=== PATIENT | female | born 1945 | race Caucasian/White ===

== ENCOUNTER → 2024-03-19 08:27 | Outpatient (CLI) | payer MEDICARE, SELFPAY ==
--- NOTE | 2024-03-19 | DI.US.S_ITS ---
PROCEDURE: US RENAL COMPLETE INDICATIONS: Renal osteodystrophy, CKD4 TECHNIQUE: Real-time scanning was performed of the kidneys and bladder, with image documentation. COMPARISON: None. FINDINGS: Kidneys: Kidneys are normal in size. Right kidney measures 10.6 cm long; left kidney measures 10.3 cm long. Right renal cortical thickness is 0.9 cm; left renal cortical thickness is 1.4 cm. The kidneys are heterogeneous with diffusely increased echogenicity. No hydronephrosis or nephrolithiasis. No suspicious solid mass lesions. Multiple bilateral simple renal cysts, the largest on the right measures up to 3.0 cm in the largest on the left measures up to 2.6 cm. Bladder: Bladder is nondistended and not well evaluated. Miscellaneous: No free pelvic fluid. IMPRESSION: No hydronephrosis. Echogenic appearance of the kidneys can be seen in the setting of chronic medical renal disease. Approved by: Desmond Ybarra M.D. on 03/19/2024 at 13:15
== END ==
LOC: US 08:29
PROVIDERS: Family Provider Family Medicine; PCP Student in an Organized Health Care Education/Training Program; Referring Provider Registered Nurse; Visit Provider Registered Nurse
DX: N25.0 Renal osteodystrophy (principal); N18.4 Chronic kidney disease, stage 4 (severe); N28.1 Cyst of kidney, acquired
CPT/HCPCS: 76770

== ENCOUNTER 2024-04-07 12:36 | Emergency (ER) | payer MEDICARE, SELFPAY ==
[2024-04-07] VITALS (12 sets, daily range): BP systolic 117–138; BP diastolic 59–96; PULSE 77–84; RESP 22; O2SAT 93–94; BMI 27.5
--- NOTE | 2024-04-07 13:07 | EKG_ITS ---
[address] [address] Test Date: 2024-04-07 Pat Name: Rosanna Dangelo Department: Room: Gender: Female [employer]: : 1945 Requested By: Order Number: [id number] Reading MD: Mark Andino MD Measurements Intervals [place] Rate: 77 P: 76 SD: 154 QRS: 154 QRSD: 74 T: 89 QT: 402 QTc: 454 Interpretive Statements Normal sinus rhythm Right axis deviation Low voltage QRS NO PRIOR TRACING Electronically Signed On 04-08-2024 7:30:47 PST by Mark Andino MD
--- NOTE | 2024-04-07 13:21 | DI.RAD.S_ITS ---
PROCEDURE: XR CHEST 1V INDICATIONS: chest pain TECHNIQUE: One view of the chest was acquired. COMPARISON: None. FINDINGS: Surgical changes and devices: None. Lungs and pleura: Hazy opacities are noted throughout bilateral lung arreola suggestive of pulmonary edema. Underlying subtle interstitial infiltrates cannot be entirely excluded. No pleural effusions or pneumothorax. Mediastinum: Aortic arch calcification is seen. Heart size is enlarged. Bones and chest wall: No suspicious bony lesions. Overlying soft tissues appear unremarkable. IMPRESSION: Cardiomegaly and congestive changes and suggestion of mild pulmonary edema. Cannot rule out underlying subtle interstitial infiltrates. No pleural effusion or pneumothorax. Dictated by: Pato De La Cruz M.D. on 04/07/2024 at 13:58 Approved by: Pato De La Cruz M.D. on 04/07/2024 at 13:59
--- NOTE | 2024-04-07 13:21 | DI.RAD.S_ITS ---
PROCEDURE: XR HIP W PEL IF DONE LT 2V INDICATIONS: fall TECHNIQUE: AP pelvis with lateral view(s) of the left hip(s). COMPARISON: None. FINDINGS: Bones: No fractures or dislocations. Pelvic ring appears intact. Bilateral hip joint osteoarthritic changes are seen with joint space narrowing and subchondral sclerosis. No evidence of avascular necrosis of femoral head. No suspicious bony lesions. Soft tissues: The visualized bowel gas pattern is normal. No suspicious soft tissue calcifications. IMPRESSION: No acute pelvic or hip fracture. Bilateral hip joint osteoarthritis. No evidence of avascular necrosis. Dictated by: Pato De La Cruz M.D. on 04/07/2024 at 13:59 Approved by: Pato De La Cruz M.D. on 04/07/2024 at 14:00
[2024-04-07 14:05] LABS: Add Manual Diff / Slide Review NO; Basophils Absolute Auto 100 /uL (0-100); Eosinophils Absolute Auto 200 /uL (0-450); Eosinophils Percent Auto 2.1 % (2-4); Hematocrit 32.9 % (36-46); Hemoglobin 10.9 g/dL (12.0-16.0); Lymphocytes Absolute Auto 1500 /uL (1100-4500); Mean Corpuscular Hemoglobin 30.7 PG (26-34); Mean Corpuscular Volume 93.1 fL (80-100); Monocytes Absolute Auto 800 /uL (0-900); Monocytes Percent Auto 7.4 % (3-14); Neutrophils Absolute Auto 8700 /uL (1500-7000); Neutrophils Percent Auto 76.5 % (50-75); Platelet Count 287 X10^3/uL (150-400); Red Blood Cell Count 3.54 X10^6/uL (4.0-5.2); Red Cell Distribution Width 13.2 % (11.6-14.8); White Blood Cell Count 11.4 X10^3/uL (4.5-11.0)
[2024-04-07 14:18] LABS: PTT Partial Thromboplastin Tim 30 SECONDS (25.1-36.5)
[2024-04-07 14:19] LABS: Alanine Aminotransferase 13 IU/L (<35); Albumin 3.7 g/dL (3.5-5.0); Albumin Globulin Ratio 1.3 (1.0-2.8); Alkaline Phosphatase 85 U/L (38-126); Aspartate Aminotransferase 25 IU/L (14-36); BUN Creatinine Ratio 14.5 (6-22); Bilirubin Total 0.5 mg/dL (0.2-1.3); Blood Urea Nitrogen 54 mg/dL (7-17); Carbon Dioxide 23 mmol/L (22-32); Chloride 110 mmol/L (98-107); Creatine Kinase 195 U/L (30-135); Estimated Glomerular Filt Rate 12 mL/min (>60); Globulin 2.9 g/dL (1.7-4.1); Glucose 121 mg/dL (80-110); HEMOLYSIS 17 (0-50); Lipase 60 U/L (23-300); Potassium 4.6 mmol/L (3.4-5.1); Sodium 142 mmol/L (137-145); Total Protein 6.6 g/dL (6.3-8.2)
[2024-04-07 14:31] LABS: NT-proBNP (BNP-Adult 18+) 1670 pg/mL (<450); Troponin I < 0.012 ng/mL (0.01-0.034)
--- NOTE | 2024-04-07 15:27 | ED.FALL ---
HPI - Fall General Chief Complaint: Fall Stated Complaint: GLF Time Seen by Provider: 04/07/24 13:20 Source: patient and EMS Mode of arrival: EMS History of Present Illness HPI Narrative: Patient 79-year-old female history of chronic kidney disease stage 4 depression adult failure to thrive bipolar hyperlipidemia hyperkalemia nonrheumatic mitral valve insufficiency who resides at [facility] presents today after ground level fall she is having some left-sided pain. Not specific to her hip. Reports that she tripped and fell over her walker wheals. No head injury or loss of consciousness. She has not on anticoagulation or antiplatelet medication. She is overall feeling well Related Data Home Medications Medication Instructions Recorded Confirmed albuterol sulfate 2.5 mg/0.5 mL 1 dose INH QID PRN ##0 01/19/16 solution for nebulization beclomethasone dipropionate 40 2 puff INH BID ##0 01/19/16 mcg/actuation aerosol inhaler (Qvar) fluoxetine 20 mg capsule 20 mg OR BID ##0 01/19/16 ipratropium bromide 0.02 % 1 dose INH QID PRN ##0 01/19/16 solution for inhalation lamotrigine 200 mg tablet 200 mg PO QDAY ##0 01/19/16 (Lamictal) lisinopril 5 mg tablet 5 mg PO HS ##0 01/19/16 lorazepam 0.5 mg tablet (Ativan) 0.5 mg PO BID ##0 01/19/16 pravastatin 20 mg tablet 20 mg PO HS ##0 01/19/16 (Pravachol) Allergies Allergy/AdvReac Type Severity Reaction Status Date / Time divalproex sodium Allergy Verified 04/07/24 14:01 [From [facility]] Patient History Social History Smoking Status: Never smoker Smoking Status: Never smoker alcohol intake frequency: holidays/special occasions only Substance Use Type: does not use Exam Initial Vital Signs Initial Vital Signs: Vital Signs Pulse Rate 82 04/07/24 12:44 Blood Pressure 117/77 04/07/24 12:44 Pulse Oximetry 94 04/07/24 12:44 GENERAL: [Well-appearing, well-nourished] and in [no acute] distress. HEENT: Head atraumatic,EOMI, pupils reactive, face symmetric, [moist] mucous membranes [EARS:] [Tympanic membranes visualized, no erythema or bulging, no hemotympanum] [PHARYNX:] [No erythema, no tonsillar exudate, no cervical lymphadenopathy] CARDIOVASCULAR: Regular rate and rhythm without murmurs, rubs or gallops. RESPIRATORY: Breath sounds equal bilaterally, no wheezes rales or rhonchi. ABDOMEN: Soft, nontender. Normoactive bowel sounds all 4 quadrants. No guarding or rebound. [RECTAL:] [Hemoccult-positive, no hemorrhoids, nontender] : No CVA tenderness EXTREMITIES: Normal range of motion, no clubbing or edema. Neurovascularly intact NEUROLOGICAL: Alert and oriented x4.Normal gait and speech. Cranial nerves II through XII grossly intact. [Good [id number], good [id number], strength equal bilaterally, no dysarthria or aphasia, sensation in tact to soft touch bilaterally, no visual changes, no facial droop] SKIN: Warm, dry, no laceration, no petechiae, no rashes or lesions. Course Orders Ordered: ED Orders 04/07/24 13:21 XR chest 1V Stat XR hip w pel if done LT 2V Stat EKG-12 Lead Stat 04/07/24 13:50 Complete Blood Count AUTO DIFF Stat Comprehensive Metabolic Panel Stat Lipase Stat Magnesium Stat NT-proBNP (BNP-Adult 18+) Stat PTT Partial Thromboplastin [place] Stat Prothrombin Time INR Stat Troponin & CK Cardiac Panel Stat Discontinued Medications Acetaminophen (Acetaminophen 325 Mg Tablet) 975 mg PO NOW ONE Stop: 04/07/24 15:58 Last Admin: 04/07/24 16:02 Dose: 975 mg Documented By: JOHN Aspirin (Aspirin 81 Mg Chew Tab) 324 mg PO NOW ONE Stop: 04/07/24 13:22 Last Admin: 04/07/24 13:59 Dose: Not Given Documented By: JOHN Vital Signs Vital signs: Vital Signs - 8 hr 04/07/24 12:44 04/07/24 12:44 04/07/24 12:57 Pulse Rate 82 78 Respiratory Rate 22 Blood Pressure 117/77 124/59 L Pulse Oximetry 94 93 Oxygen Delivery Method Room Air 04/07/24 13:00 04/07/24 13:00 04/07/24 13:30 Pulse Rate 77 78 Respiratory Rate Blood Pressure 124/59 L Pulse Oximetry 93 93 Oxygen Delivery Method Room Air 04/07/24 13:56 04/07/24 13:56 04/07/24 14:00 Pulse Rate 77 Respiratory Rate Blood Pressure 136/63 128/65 Pulse Oximetry 93 Oxygen Delivery Method 04/07/24 14:00 04/07/24 14:30 04/07/24 14:30 Pulse Rate 78 79 Respiratory Rate Blood Pressure 131/60 Pulse Oximetry 93 93 Oxygen Delivery Method 04/07/24 15:00 04/07/24 15:00 04/07/24 15:30 Pulse Rate 84 78 Respiratory Rate Blood Pressure 128/81 Pulse Oximetry 94 94 Oxygen Delivery Method 04/07/24 15:31 04/07/24 15:31 04/07/24 15:46 Pulse Rate 81 83 Respiratory Rate Blood Pressure 135/96 H Pulse Oximetry 94 93 Oxygen Delivery Method 04/07/24 15:46 04/07/24 16:00 Pulse Rate 81 Respiratory Rate Blood Pressure 138/65 Pulse Oximetry 94 Oxygen Delivery Method Room Air MDM - Fall Lab Data 04/07/24 13:50 04/07/24 13:50 Labs: Lab Results 04/07/24 Range/Units 13:50 WBC 11.4 H (4.5-11.0) X10^3/uL RBC 3.54 L (4.0-5.2) X10^6/uL Hgb 10.9 L (12.0-16.0) g/dL Hct 32.9 L (36-46) % MCV 93.1 (80-100) fL MCH 30.7 (26-34) PG MCHC 33.0 (30-36) % RDW 13.2 (11.6-14.8) % Plt Count 287 (150-400) X10^3/uL Neut % (Auto) 76.5 H (50-75) % Lymph % (Auto) 13.0 L (25-40) % Dickens % (Auto) 7.4 (3-14) % Eos % (Auto) 2.1 (2-4) % Baso % (Auto) 1.0 (0-2) % Neut # (Auto) 8700 H (4276-7120) /uL Lymph # (Auto) 1500 (5178-8025) /uL Dickens # (Auto) 800 (0-900) /uL Eos # (Auto) 200 (0-450) /uL Baso # (Auto) 100 (0-100) /uL PT 11.0 (9.4-12.5) SECONDS INR 1.0 (0.9-1.3) APTT 30 (25.1-36.5) SECONDS Sodium 142 (137-145) mmol/L Potassium 4.6 (3.4-5.1) mmol/L Chloride 110 H (98-107) mmol/L Carbon Dioxide 23 (22-32) mmol/L BUN 54 H (7-17) mg/dL Creatinine 3.73 H (0.52-1.04) mg/dL Estimated GFR 12 L (>60) mL/min BUN/Creatinine Ratio 14.5 (6-22) Glucose 121 H (80-110) mg/dL Calcium 8.0 L (8.4-10.2) mg/dL Magnesium 2.0 (1.6-2.3) mg/dL Total Bilirubin 0.5 (0.2-1.3) mg/dL AST 25 (14-36) IU/L ALT 13 (<35) IU/L Alkaline Phosphatase 85 (38-126) U/L Total Creatine Kinase 195 H (30-135) U/L Troponin I < 0.012 (0.01-0.034) ng/mL NT-Pro-B Natriuret Pep 1670 H (<450) pg/mL Total Protein 6.6 (6.3-8.2) g/dL Albumin 3.7 (3.5-5.0) g/dL Globulin 2.9 (1.7-4.1) g/dL Albumin/Globulin Ratio 1.3 (1.0-2.8) Lipase 60 (23-300) U/L Imaging Data Extremity x-ray #1: Radiologist's Impression: PROCEDURE: XR HIP W PEL IF DONE LT 2V INDICATIONS: fall TECHNIQUE: AP pelvis with lateral view(s) of the left hip(s). COMPARISON: None. FINDINGS: Bones: No fractures or dislocations. Pelvic ring appears intact. Bilateral hip joint osteoarthritic changes are seen with joint space narrowing and subchondral sclerosis. No evidence of avascular necrosis of femoral head. No suspicious bony lesions. Soft tissues: The visualized bowel gas pattern is normal. No suspicious soft tissue calcifications. IMPRESSION: No acute pelvic or hip fracture. Bilateral hip joint osteoarthritis. No evidence of avascular necrosis. Dictated by: Pato De La Cruz M.D. on 04/07/2024 at 13:59 Approved by: Pato De La Cruz M.D. on 04/07/2024 at 14:00 ECG Data Attestation: I personally reviewed and interpreted this ECG as follows: Prior ECG tracings: not available for review Interpretation: Low voltage normal sinus rhythm rate 77 SD interval 154 QRS [address] changes MDM Narrative Medical decision making narrative: Patient is a 79-year-old female who has multiple medical problems including chronic kidney disease bipolar hyperlipidemia hypertension presenting today after mechanical ground level fall. Sounds like she tripped over her walker. She has some left-sided pain. No specific hip pain or shortening. She is actually able to move both legs. Hip x-ray is negative Blood work is overall reassuring she does have a creatinine of 3.73 with a GFR of 12. Unclear what her normal is but she does have stage IV kidney disease. Potassium is 4.6. She ambulated with walk without any difficulty I attempted to call patient's jaw on however the son Junito answered the phone. Junito lives over at [place] updated him on patient's ED course he was unaware that she was here. I never saw the has been in the emergency department. Other staff did, he reported that he was going home. Later [facility] told us that has a wandering problem and has dementia himself. The did not go back over to assisted living facility. Police were called by the ED. We called and told son as well. Security cameras were reviewed appeared that got into a taxi cab to go back [facility]. Assisted living facility police and son are all made aware of the . Discharge Plan Departure Patient Disposition: Home Clinical Impression: Fall Activity Restrictions/Additional Instructions: *You have been diagnosed with fall *What to do: At this time no broken bone is found blood work is reassuring Try ice or heat *Continue to take medications as directed Tylenol as needed for pain *Follow up with your primary care provider in 2-3 days or call [phone] *Return to ER if you should have recurrent falls [or] any new, worsening or concerning symptoms Prescriptions: No Action lorazepam [Ativan] 0.5 MG tablet 0.5 mg PO BID Qty: 0 fluoxetine 20 MG capsule 20 mg OR BID Qty: 0 lisinopril 5 MG tablet 5 mg PO HS Qty: 0 lamotrigine [Lamictal] 200 MG tablet 200 mg PO QDAY Qty: 0 pravastatin [Pravachol] 20 MG tablet 20 mg PO HS Qty: 0 beclomethasone dipropionate [Qvar] 40 MCG/PUFF aerosol 2 puff INH BID Qty: 0 albuterol sulfate 2.5 MG/0.5 ML solution for nebulization 1 dose INH QID PRNQty: 0 ipratropium bromide 0.2 MG/1 ML solution 1 dose INH QID PRNQty: 0 Referrals: Blaise Kelsey MD [Primary Care Provider] - Stand Alone Forms: Patient Portal/API/Survey
[2024-04-07] MEDS: ACETAMINOPHEN 325 MG TABLET 975 MG PO (16:02)
== END 2024-04-07 16:18 | disposition home or self-care (01) ==
PROVIDERS: Emergency Provider Emergency Medicine; Family Provider Family Medicine; PCP Student in an Organized Health Care Education/Training Program
DX: M25.552 Pain in left hip (principal); W01.0XXA Fall on same level from slipping, tripping and stumbling without subsequent striking against object, initial encounter; R79.89 Other specified abnormal findings of blood chemistry; R07.9 Chest pain, unspecified; N18.4 Chronic kidney disease, stage 4 (severe)
CPT/HCPCS: 71045; 73502; 80053; 82550; 83690; 83735; 83880; 84484; 85025; 85610; 85730; 93005; 99283; 99284

== ENCOUNTER 2024-04-16 11:08 | Emergency (ER) | payer MEDICARE, SELFPAY ==
[2024-04-16 11:20] VITALS: BP 127/60; PULSE 77; RESP 18; TEMP 37.3; O2SAT 93; BMI 28.3
--- NOTE | 2024-04-16 11:37 | DI.CT.S_ITS ---
PROCEDURE: CT HEAD/BRAIN WO CON INDICATIONS: fall, pain. TECHNIQUE: Noncontrast 4.5 mm thick angled axial sections acquired from the foramen magnum to the vertex, with coronal and sagittal reformats. For radiation dose reduction, the following was used: automated exposure control, adjustment of mA and/or kV according to patient size. COMPARISON: None. FINDINGS: Image quality: Diagnostic. CSF spaces: Basal cisterns are patent. No extra-axial fluid collections. The ventricles are symmetric in size and shape. Brain: No intracranial bleeds or masses. There is cerebral volume loss for age, with resultant ventricular and sulcal prominence. There are periventricular and deep white matter chronic small vessel ischemic changes. There is intracranial internal carotid artery atherosclerosis. Skull and face: Calvarium and visualized facial bones appear intact, without suspicious lesions. Sinuses: Visualized sinuses and mastoids are clear. IMPRESSION: No acute intracranial pathology. Dictated by: Usha Buitrago MD, PhD on 04/16/2024 at 12:54 Approved by: Usha Buitrago MD, PhD on 04/16/2024 at 12:56
--- NOTE | 2024-04-16 11:37 | DI.CT.S_ITS ---
PROCEDURE: CT CERVICAL SPINE WO CON INDICATIONS: fall TECHNIQUE: Noncontrast 3 mm thick sections acquired from the skull base to the T4 level. Sagittal and coronal reformats were then constructed. For radiation dose reduction, the following was used: automated exposure control, adjustment of mA and/or kV according to patient size. COMPARISON: None. FINDINGS: Image quality: Excellent. Bones: No fractures or dislocations. Visualized superior ribs are intact. Soft tissues: Prevertebral soft tissues are normal in thickness. No paravertebral hematomas. No apical pneumothoraces. IMPRESSION: No fracture. No acute osseous lesion. If symptoms and/or clinical suspicion for pathology persists, evaluation with MRI should be considered for further assessment. Dictated by: Usha Buitrago MD, PhD on 04/16/2024 at 12:56 Approved by: Usha Buitrago MD, PhD on 04/16/2024 at 13:00
--- NOTE | 2024-04-16 11:41 | DI.RAD.S_ITS ---
PROCEDURE: XR CHEST 1V INDICATIONS: fall TECHNIQUE: One view of the chest was acquired. COMPARISON: [facility], CR, XR CHEST 1V, 04/07/2024, 13:32. FINDINGS: Surgical changes and devices: None. Lungs and pleura: Lungs are clear. No pleural effusions or pneumothorax. Mediastinum: Mediastinal contours appear normal. Heart is mildly enlarged. Large retrocardiac hiatal hernia. Bones and chest wall: No suspicious bony lesions. Overlying soft tissues appear unremarkable. IMPRESSION: No acute cardiopulmonary abnormality is seen. Dictated by: Usha Buitrago MD, PhD on 04/16/2024 at 11:59 Approved by: Usha Buitrago MD, PhD on 04/16/2024 at 12:04
--- NOTE | 2024-04-16 11:41 | ED_ITS ---
HPI - Fall <Linda Liang PA-C - Last Filed: 04/16/24 19:49> General Chief Complaint: Fall Stated Complaint: fall Time Seen by Provider: 04/16/24 11:28 History of Present Illness HPI Narrative: 79-year-old female with past medical history stage IV chronic kidney disease, major depressive disorder, adult failure to thrive, repeated falls, bipolar disorder, COPD, hyperlipidemia, hypertension, nonrheumatic mitral valve insufficiency, nonrheumatic tricuspid valve insufficiency, GERD, osteoarthritis, renal osteodystrophy, osteoporosis, dysphagia, cognitive communication deficit brought in by EMT following a fall this morning. Patient was found fallen from her bed at the assisted living that she is at. The fall was unwitnessed. Patient is unable to explain what happened due to the dementia and cognitive issues. Patient states that she is hurting all over. Denies chest pain, shortness of breath. Unable to obtain further history from patient. Related Data Home Medications Medication Instructions Recorded Confirmed albuterol sulfate 2.5 mg/0.5 mL 1 dose INH QID PRN ##0 01/19/16 solution for nebulization beclomethasone dipropionate 40 2 puff INH BID ##0 01/19/16 mcg/actuation aerosol inhaler (Qvar) fluoxetine 20 mg capsule 20 mg OR BID ##0 01/19/16 ipratropium bromide 0.02 % 1 dose INH QID PRN ##0 01/19/16 solution for inhalation lamotrigine 200 mg tablet 200 mg PO QDAY ##0 01/19/16 (Lamictal) lisinopril 5 mg tablet 5 mg PO HS ##0 01/19/16 lorazepam 0.5 mg tablet (Ativan) 0.5 mg PO BID ##0 01/19/16 pravastatin 20 mg tablet 20 mg PO HS ##0 01/19/16 (Pravachol) Previous Rx's Medication Instructions Recorded cefpodoxime 200 mg tablet 200 mg PO Q12H 10 days #20 tabs 04/16/24 cephalexin 500 mg capsule 500 mg PO TID 10 days #30 caps 04/16/24 Allergies Allergy/AdvReac Type Severity Reaction Status Date / Time divalproex sodium Allergy Verified 04/07/24 14:01 [facility] Review of Systems <Linda Liang PA-C - Last Filed: 04/16/24 19:49> Review of Systems Narrative: See HPI ROS Unobtainable: Unobtainable due to mental condition Patient History <Linda Liang PA-C - Last Filed: 04/16/24 19:49> Social History Smoking Status: Never smoker Smoking Status: Never smoker alcohol intake frequency: holidays/special occasions only Substance Use Type: does not use Exam <Linda Liang PA-C - Last Filed: 04/16/24 19:49> Narrative Exam Narrative: Const General:?cooperative, healthy appearing and comfortable [facility] Head:?normal to inspection Ears:?hearing grossly normal bilaterally Nose:?external nose normal Face and sinus:?normal facial exam and sinuses nontender Mouth:?oral mucosae normal Throat:?posterior oropharynx normal Eyes General:?appearance normal, both eyes and all related structures Neck Neck:?normal visual inspection and no lymphadenopathy noted Resp Effort & Inspection:?normal respiratory effort Auscultation:?clear to auscultation bilaterally Cardio Rate:?regular rate Rhythm:?regular rhythm GI Abdomen is soft, nondistended. Patient generalized tenderness to palpation. Neuro General:?patient alert, patient awake and alert; patient not able to provide accurate history Initial Vital Signs Initial Vital Signs: Vital Signs Temperature 99.1 F 04/16/24 11:20 Pulse Rate 77 04/16/24 11:20 Respiratory Rate 18 04/16/24 11:20 Blood Pressure 127/60 04/16/24 11:20 Pulse Oximetry 93 04/16/24 11:20 Oxygen Delivery Method Room Air 04/16/24 11:20 <Ramona Miller MD - Last Filed: 04/25/24 07:17> Initial Vital Signs Initial Vital Signs: Vital Signs Temperature 99.1 F 04/16/24 11:20 Pulse Rate 77 04/16/24 11:20 Respiratory Rate 18 04/16/24 11:20 Blood Pressure 127/60 04/16/24 11:20 Pulse Oximetry 93 04/16/24 11:20 Oxygen Delivery Method Room Air 04/16/24 11:20 Course <Linda Liang PA-C - Last Filed: 04/16/24 19:49> Orders Ordered: Discontinued Medications Cefazolin Sodium (Cephalexin 250 Mg Cap Prepack) 1 bottle MISC DIRECTED ONE Stop: 04/16/24 19:46 Last Admin: 04/16/24 20:00 Dose: 1 bottle Documented By: YASIR Ceftriaxone Sodium 1,000 mg/ (Sodium Chloride) 100 mls @ 200 mls/hr IV NOW ONE Stop: 04/16/24 17:51 Last Infusion: 04/16/24 18:49 Dose: Infused Documented By: Admin: 04/16/24 18:05 Dose: 200 mls/hr Documented By: MARRY Sodium Chloride (Normal Saline 0.9%) 1,000 mls @ 1,000 mls/hr IV BOLUS ONE Stop: 04/16/24 19:31 Last Infusion: 04/16/24 19:48 Dose: Infused Documented By: Admin: 04/16/24 18:40 Dose: 1,000 mls/hr Documented By: MARRY Vital Signs Vital signs: Vital Signs - 8 hr 04/16/24 16:30 04/16/24 17:00 04/16/24 17:30 Temperature 98.6 F Pulse Rate 77 74 80 Respiratory Rate 17 18 18 Blood Pressure 131/69 139/63 139/65 Pulse Oximetry 93 95 92 Oxygen Delivery Method Room Air Room Air Room Air 04/16/24 18:00 04/16/24 19:46 Temperature Pulse Rate 75 79 Respiratory Rate 17 18 Blood Pressure 139/65 140/67 Pulse Oximetry 92 95 Oxygen Delivery Method Room Air Room Air <Ramona Miller MD - Last Filed: 04/25/24 07:17> Orders Ordered: Discontinued Medications Cefazolin Sodium (Cephalexin 250 Mg Cap Prepack) 1 bottle MISC DIRECTED ONE Stop: 04/16/24 19:46 Last Admin: 04/16/24 20:00 Dose: 1 bottle Documented By: YASIR Ceftriaxone Sodium 1,000 mg/ (Sodium Chloride) 100 mls @ 200 mls/hr IV NOW ONE Stop: 04/16/24 17:51 Last Infusion: 04/16/24 18:49 Dose: Infused Documented By: Admin: 04/16/24 18:05 Dose: 200 mls/hr Documented By: MARRY Sodium Chloride (Normal Saline 0.9%) 1,000 mls @ 1,000 mls/hr IV BOLUS ONE Stop: 04/16/24 19:31 Last Infusion: 04/16/24 19:48 Dose: Infused Documented By: Admin: 04/16/24 18:40 Dose: 1,000 mls/hr Documented By: MARRY Vital Signs Vital signs: Vital Signs - 8 hr 04/16/24 16:30 04/16/24 17:00 04/16/24 17:30 Temperature 98.6 F Pulse Rate 77 74 80 Respiratory Rate 17 18 18 Blood Pressure 131/69 139/63 139/65 Pulse Oximetry 93 95 92 Oxygen Delivery Method Room Air Room Air Room Air 04/16/24 18:00 04/16/24 19:46 Temperature Pulse Rate 75 79 Respiratory Rate 17 18 Blood Pressure 139/65 140/67 Pulse Oximetry 92 95 Oxygen Delivery Method Room Air Room Air MDM - Fall <Linda Liang PA-C - Last Filed: 04/16/24 19:49> Lab Data 04/16/24 12:27 04/16/24 12:27 Labs: Lab Results 04/16/24 04/16/24 04/16/24 Range/Units 12:27 14:09 16:41 WBC 10.8 (4.5-11.0) X10^3/uL RBC 3.51 L (4.0-5.2) X10^6/uL Hgb 10.6 L (12.0-16.0) g/dL Hct 32.6 L (36-46) % MCV 92.8 (80-100) fL MCH 30.2 (26-34) PG MCHC 32.6 (30-36) % RDW 13.2 (11.6-14.8) % Plt Count 365 (150-400) X10^3/uL Neut % (Auto) 76.1 H (50-75) % Lymph % (Auto) 14.1 L (25-40) % [place] % (Auto) 7.8 (3-14) % Eos % (Auto) 0.9 L (2-4) % Baso % (Auto) 1.1 (0-2) % Neut # (Auto) 8200 H (3314-9113) /uL Lymph # (Auto) 1500 (3533-7616) /uL [place] # (Auto) 800 (0-900) /uL Eos # (Auto) 100 (0-450) /uL Baso # (Auto) 100 (0-100) /uL Sodium 143 (137-145) mmol/L Potassium 4.3 (3.4-5.1) mmol/L Chloride 113 H (98-107) mmol/L Carbon Dioxide 21 L (22-32) mmol/L BUN 51 H (7-17) mg/dL Creatinine 4.03 H (0.52-1.04) mg/dL Estimated GFR 11 L (>60) mL/min BUN/Creatinine Ratio 12.7 (6-22) Glucose 95 (80-110) mg/dL Lactate 0.6 L (0.7-2.1) mmol/L Calcium 7.8 L (8.4-10.2) mg/dL Total Bilirubin 0.5 (0.2-1.3) mg/dL AST 21 (14-36) IU/L ALT 10 (<35) IU/L Alkaline Phosphatase 104 (38-126) U/L Total Creatine Kinase 138 H (30-135) U/L Troponin I < 0.012 (0.01-0.034) ng/mL NT-Pro-B Natriuret Pep 3500 H (<450) pg/mL Total Protein 7.1 (6.3-8.2) g/dL Albumin 3.7 (3.5-5.0) g/dL Globulin 3.4 (1.7-4.1) g/dL Albumin/Globulin Ratio 1.1 (1.0-2.8) Lipase 38 (23-300) U/L Urine Color Yellow Urine Appearance Clear Urine pH 6.5 (4.5-8.0) Ur Specific [place] 1.015 (1.000-1.035) Urine Protein 2+ H (Negative) Urine Glucose (UA) Negative (Negative) g/dL Urine Ketones Negative (NEGATIVE) Urine Occult Blood 3+ H (Negative) Urine Nitrate Negative (Negative) Urine Bilirubin Negative (NEGATIVE) Urine Urobilinogen 0.2 (0.2) E.U./dL Ur Leukocyte Esterase 3+ H (NEGATIVE) Urine RBC 1-5/hpf (0-5/HPF) Urine WBC 30-100/hpf H (0-5/HPF) Ur Squamous Epith Cells 0-1 /hpf (0-5/HPF) Urine Bacteria Many (>30) H (None) Ur Culture Indicated? Specimen cultured Vol Urine Centrifuged 10ml (spun) SARS-CoV-2 (PCR) Negative (Negative) Influenza A (RT-PCR) Flu a negative (NEGATIVE) Influenza B (RT-PCR) Flu b negative (NEGATIVE) RSV (PCR) Negative (Negative) MDM Narrative Medical decision making narrative: 79-year-old female with past medical history stage IV chronic kidney disease, major depressive disorder, adult failure to thrive, repeated falls, bipolar disorder, COPD, hyperlipidemia, hypertension, nonrheumatic mitral valve insufficiency, nonrheumatic tricuspid valve insufficiency, GERD, osteoarthritis, renal osteodystrophy, osteoporosis, dysphagia, cognitive communication deficit brought in by EMT following a fall this morning. Concern for ACS versus worsening CKD versus UTI versus other. Obtained EKG, chest x-ray, labs, troponin, BNP, CT abdomen pelvis, head CT, CT scan C-spine. EKG is normal sinus rhythm with possible left atrial enlargement, right axis deviation, low-voltage QRS. No acute ST-T changes. Chest x-ray without acute cardiopulmonary abnormalities. Head CT with no acute intracranial pathology. CT C-spine with no fracture or acute osseous lesion. Labs significant for elevated BNP of 3500, elevated creatinine 4.03, declining GFR 11, calcium low at 7.8. Troponin is within normal limits. Dr. Rodriguez cardiology was consulted regarding the elevated BNP. Her recommendation is that this is more likely renal in origin versus cardiac. Recommends starting Lasix only if patient is clinically overloaded. [facility] was consulted to obtain history. They received the patient from a SNF with a diagnosis of failure to thrive. The paperwork from the SNF notes that no further interventions regarding the CKD due to patient being unable to consent for any interventions such as dialysis. , hospitalist was consulted. He agrees that since patient is unable to consent for dialysis or further interventions for the CKD, we can discharge back to [facility]. Patient was unable to urinate during the ED stay, acute urinary retention of 500 mL was noted on bladder scan. Murphy catheter was placed. UA shows a UTI. Will treat with a dose of Rocephin IV, discharge on p.o. antibiotics. Murphy catheter was removed, trial of urination was successful. Patient was able to urinate a small amount. Prepack of cephalexin given patient for the next few doses. Patient was given a dose of Rocephin in the ED today. Remaining antibiotics prescribed to [place] pharmacy. Medical records reviewed: Yes <Ramona Miller MD - Last Filed: 04/25/24 07:17> Lab Data Labs: Lab Results 04/16/24 04/16/24 04/16/24 Range/Units 12:27 14:09 16:41 WBC 10.8 (4.5-11.0) X10^3/uL RBC 3.51 L (4.0-5.2) X10^6/uL Hgb 10.6 L (12.0-16.0) g/dL Hct 32.6 L (36-46) % MCV 92.8 (80-100) fL MCH 30.2 (26-34) PG MCHC 32.6 (30-36) % RDW 13.2 (11.6-14.8) % Plt Count 365 (150-400) X10^3/uL Neut % (Auto) 76.1 H (50-75) % Lymph % (Auto) 14.1 L (25-40) % [place] % (Auto) 7.8 (3-14) % Eos % (Auto) 0.9 L (2-4) % Baso % (Auto) 1.1 (0-2) % Neut # (Auto) 8200 H (3718-0841) /uL Lymph # (Auto) 1500 (5724-9528) /uL [place] # (Auto) 800 (0-900) /uL Eos # (Auto) 100 (0-450) /uL Baso # (Auto) 100 (0-100) /uL Sodium 143 (137-145) mmol/L Potassium 4.3 (3.4-5.1) mmol/L Chloride 113 H (98-107) mmol/L Carbon Dioxide 21 L (22-32) mmol/L BUN 51 H (7-17) mg/dL Creatinine 4.03 H (0.52-1.04) mg/dL Estimated GFR 11 L (>60) mL/min BUN/Creatinine Ratio 12.7 (6-22) Glucose 95 (80-110) mg/dL Lactate 0.6 L (0.7-2.1) mmol/L Calcium 7.8 L (8.4-10.2) mg/dL Total Bilirubin 0.5 (0.2-1.3) mg/dL AST 21 (14-36) IU/L ALT 10 (<35) IU/L Alkaline Phosphatase 104 (38-126) U/L Total Creatine Kinase 138 H (30-135) U/L Troponin I < 0.012 (0.01-0.034) ng/mL NT-Pro-B Natriuret Pep 3500 H (<450) pg/mL Total Protein 7.1 (6.3-8.2) g/dL Albumin 3.7 (3.5-5.0) g/dL Globulin 3.4 (1.7-4.1) g/dL Albumin/Globulin Ratio 1.1 (1.0-2.8) Lipase 38 (23-300) U/L Urine Color Yellow Urine Appearance Clear Urine pH 6.5 (4.5-8.0) Ur Specific [place] 1.015 (1.000-1.035) Urine Protein 2+ H (Negative) Urine Glucose (UA) Negative (Negative) g/dL Urine Ketones Negative (NEGATIVE) Urine Occult Blood 3+ H (Negative) Urine Nitrate Negative (Negative) Urine Bilirubin Negative (NEGATIVE) Urine Urobilinogen 0.2 (0.2) E.U./dL Ur Leukocyte Esterase 3+ H (NEGATIVE) Urine RBC 1-5/hpf (0-5/HPF) Urine WBC 30-100/hpf H (0-5/HPF) Ur Squamous Epith Cells 0-1 /hpf (0-5/HPF) Urine Bacteria Many (>30) H (None) Ur Culture Indicated? Specimen cultured Vol Urine Centrifuged 10ml (spun) SARS-CoV-2 (PCR) Negative (Negative) Influenza A (RT-PCR) Flu a negative (NEGATIVE) Influenza B (RT-PCR) Flu b negative (NEGATIVE) RSV (PCR) Negative (Negative) Discharge Plan Departure Patient Disposition: Home Clinical Impression: Fall UTI (urinary tract infection) Qualifiers: Urinary tract infection type: acute cystitis Hematuria presence: without hematuria Qualified Code(s): N30.00 - Acute cystitis without hematuria Instructions: DI for Urinary Tract Infection (UTI), How to Prevent Falls Activity Restrictions/Additional Instructions: You were evaluated in the ED today for a fall and feeling unwell. It appears that you have a urinary tract infection, for which you are being prescribed antibiotics. Please take the antibiotics as prescribed. Return to the ED if you have worsening symptoms, difficulty urinating. Prescriptions: New cefpodoxime 200 mg tablet 200 mg PO Q12H 10 Days Qty: 20 0RF Rx Instructions: must administer with a meal/food cephalexin 500 mg capsule 500 mg PO TID 10 Days Qty: 30 0RF No Action lorazepam [Ativan] 0.5 MG tablet 0.5 mg PO BID Qty: 0 fluoxetine 20 MG capsule 20 mg OR BID Qty: 0 lisinopril 5 MG tablet 5 mg PO HS Qty: 0 lamotrigine [Lamictal] 200 MG tablet 200 mg PO QDAY Qty: 0 pravastatin [Pravachol] 20 MG tablet 20 mg PO HS Qty: 0 beclomethasone dipropionate [Qvar] 40 MCG/PUFF aerosol 2 puff INH BID Qty: 0 albuterol sulfate 2.5 MG/0.5 ML solution for nebulization 1 dose INH QID PRNQty: 0 ipratropium bromide 0.2 MG/1 ML solution 1 dose INH QID PRNQty: 0 Referrals: Blaise Kelsey MD [Primary Care Provider] - Stand Alone Forms: Patient Portal/API/Survey ED Sign-out <Ramona Miller MD - Last Filed: 04/25/24 07:17> Cosign ED Attending Cosignature Attestation: I was immediately available in the department for consultation throughout this patient's visit. Ramona Miller MD
--- NOTE | 2024-04-16 11:43 | DI.CT.S_ITS ---
PROCEDURE: CT ABDOMEN PELVIS WO CON INDICATIONS: fall TECHNIQUE: Axial sections were acquired from the lung bases to the pubic symphysis. Coronal and sagittal reformats were performed. For radiation dose reduction, the following was used: automated exposure control, adjustment of mA and/or kV according to patient size. COMPARISON: None. FINDINGS: Image quality: Mild motion artifact. Lower chest: Scattered lower lung scarring and atelectasis. Very large hiatal hernia, containing all of the stomach, omental vessels, and colon Coronary and annular calcifications. Heart size is at the upper limit of normal, and trace pericardial effusion. Liver: Solid organs are not well assessed without IV contrast. There is a possible exophytic region in segment 8 liver measured 2 8 centimeters (2). Gallbladder and biliary system: Cholelithiasis. Mildly distended CBD at 8-9 millimeters. Pancreas: No ductal dilation Spleen: Nonenlarged. There is trace perisplenic free fluid. Adrenals: Bilateral adrenal nodules measuring 2.1 centimeters on the left and 1.6 centimeters on the right. Low-density below 10 Hounsfield units. Kidneys: Multiple suspected cysts in the kidneys. Intermediate density lesion is seen in the left interpolar region measuring 1.7 centimeters. Vessels and lymph nodes: No abdominal aortic aneurysm. Atherosclerotic calcifications are present no pathologic lymph nodes by size criteria. Retroperitoneum without drainable fluid collection or hematoma Bowel and peritoneum: Large hiatal hernia as above. No acute small bowel obstruction. There are colonic diverticula. No hemoperitoneum identified. Body wall: Mild fat containing umbilical hernia Pelvis: Bladder is unremarkable. Reproductive organs are unremarkable on limited CT evaluation Bones: There are degenerative changes. Age-indeterminate nondisplaced fractures of the left 10th and 11th ribs. IMPRESSION: Trace perisplenic free fluid. No definite large capsular hematoma. No definite hemoperitoneum in the pelvis. This is otherwise not well evaluated on noncontrast imaging. Age-indeterminate nondisplaced fracture of the left 10th and 11th ribs. Large hiatal hernia containing all the stomach and some colon along with mesenteric vessels. Possible exophytic region in segment 8 of the liver representing diaphragmatic eventration versus an exophytic liver lesion. Intermediate density left renal lesion measuring 1.7 centimeters. These could be further evaluated with abdominal MRI. Cholelithiasis. Mildly distended CBD, correlate with LFTs. Bilateral adrenal adenomas. Correlate with laboratory testing to determine functional status. Other findings above. Dictated by: Byron Aleman M.D. on 04/16/2024 at 12:58 Approved by: Byron Aleman M.D. on 04/16/2024 at 13:07
--- NOTE | 2024-04-16 12:01 | EKG_ITS ---
[address] [address] [place] [address] Test Date: 2024-04-16 Pat Name: Rosanna Dangelo Department: [facility] Room: Gender: Female [employer]: ANSLEY : 1945 Requested By: Order Number: [id number] Reading MD: Mark Andino MD Measurements Intervals Ward Rate: 74 P: 75 MA: 150 QRS: 115 QRSD: 70 T: 84 QT: 390 QTc: 432 Interpretive Statements Normal sinus rhythm Possible Left atrial enlargement Right axis deviation Low voltage QRS Electronically Signed On 04-16-2024 15:33:05 PST by Mark Andino MD
[2024-04-16 12:35] LABS: Add Manual Diff / Slide Review NO; Basophils Absolute Auto 100 /uL (0-100); Basophils Percent Auto 1.1 % (0-2); Eosinophils Absolute Auto 100 /uL (0-450); Eosinophils Percent Auto 0.9 % (2-4); Hematocrit 32.6 % (36-46); Hemoglobin 10.6 g/dL (12.0-16.0); Lymphocytes Absolute Auto 1500 /uL (1100-4500); Lymphocytes Percent Auto 14.1 % (25-40); Mean Corpuscular HGB Conc 32.6 % (30-36); Mean Corpuscular Hemoglobin 30.2 PG (26-34); Mean Corpuscular Volume 92.8 fL (80-100); Monocytes Absolute Auto 800 /uL (0-900); Monocytes Percent Auto 7.8 % (3-14); Neutrophils Absolute Auto 8200 /uL (1500-7000); Neutrophils Percent Auto 76.1 % (50-75); Platelet Count 365 X10^3/uL (150-400); Red Blood Cell Count 3.51 X10^6/uL (4.0-5.2); Red Cell Distribution Width 13.2 % (11.6-14.8); White Blood Cell Count 10.8 X10^3/uL (4.5-11.0)
[2024-04-16 12:50] LABS: Lactate (Lactic Acid) 0.6 mmol/L (0.7-2.1)
[2024-04-16 12:51] LABS: Alanine Aminotransferase 10 IU/L (<35); Albumin 3.7 g/dL (3.5-5.0); Albumin Globulin Ratio 1.1 (1.0-2.8); Alkaline Phosphatase 104 U/L (38-126); Aspartate Aminotransferase 21 IU/L (14-36); BUN Creatinine Ratio 12.7 (6-22); Bilirubin Total 0.5 mg/dL (0.2-1.3); Blood Urea Nitrogen 51 mg/dL (7-17); Calcium 7.8 mg/dL (8.4-10.2); Carbon Dioxide 21 mmol/L (22-32); Chloride 113 mmol/L (98-107); Creatine Kinase 138 U/L (30-135); Estimated Glomerular Filt Rate 11 mL/min (>60); Globulin 3.4 g/dL (1.7-4.1); Glucose 95 mg/dL (80-110); HEMOLYSIS < 15 (0-50); Lipase 38 U/L (23-300); Potassium 4.3 mmol/L (3.4-5.1); Sodium 143 mmol/L (137-145); Total Protein 7.1 g/dL (6.3-8.2)
[2024-04-16 13:02] LABS: NT-proBNP (BNP-Adult 18+) 3500 pg/mL (<450); Troponin I < 0.012 ng/mL (0.01-0.034)
[2024-04-16 14:54] LABS: Influenza A - CEPHEID Flu A NEGATIVE (NEGATIVE); Influenza B - CEPHEID Flu B NEGATIVE (NEGATIVE); Respiratory Syncytial Virus Negative (Negative)
[2024-04-16 15:06] LABS: COVID-19 CEPHEID 4-PLEX PCR Negative (Negative)
--- NOTE | 2024-04-16 15:19 | DI.ECHO.S_ITS ---
[facility]+ [facility] : : [address] : : [place] : : [id number] : : Phone: [phone] Echocardiogram Report + + :Name: KRISTY PEREZ Study Date: 04/16/2024 Height: 60 in : :[facility] ReadingLocation: Weight: 145 lb: : Gender: Female BSA: 1.6 m2 : :: 1945 Age: 79 yrs : :Reason For Study: ELEVATED BNP : :Ordering Physician: MONSE JOLLEY Performed By: Leena Carreon : :Referring: MONSE JOLLEY : + + Interpretation Summary The left ventricle is normal in size and wall thickness. The left ventricle is hyperdynamic. The ejection fraction is estimated to be 70-75%. Diastolic parameters suggest a relaxation abnormality of the left ventricle, consistent with probable normal filling pressures. The right ventricle is at the upper limits of normal in size. The right ventricular systolic function is normal. The right ventricular systolic pressure is estimated to be at least 49 mmHg based on an estimated right atrial pressure of 3 mm Hg. The left atrial size is normal. There is moderate to severe tricuspid regurgitation. The aortic root is normal size. Procedure: A two-dimensional transthoracic echocardiogram with color flow and Doppler was performed. The study quality was technically adequate. Comparison is made with the echocardiogram of 03/08/2017. The patient was in sinus rhythm with heart rates between 75-80 bpm during the exam. Left Ventricle: The left ventricle is normal in size and wall thickness. The left ventricle is hyperdynamic. The ejection fraction is estimated to be 70- 75%. Left ventricular wall motion is normal. Diastolic parameters suggest a relaxation abnormality of the left ventricle, consistent with probable normal filling pressures. Right Ventricle: The right ventricle is at the upper limits of normal in size. The right ventricular systolic function is normal. Atria: The left atrial size is normal. The right atrium is moderately dilated. There is no Doppler evidence for an interatrial shunt. Mitral Valve: The mitral valve leaflets appear normal. There is no evidence of stenosis, fluttering, or prolapse. There is mild mitral regurgitation. Aortic Valve: The aortic valve is trileaflet. The aortic valve opens well. The aortic valve is mildly calcified. There is no aortic valve stenosis. No aortic regurgitation is present. Tricuspid Valve: The tricuspid valve leaflets are thin and pliable. There is moderate to severe tricuspid regurgitation. The right ventricular systolic pressure is estimated to be at least 49 mmHg based on an estimated right atrial pressure of 3 mm Hg. Pulmonic Valve: The pulmonic valve leaflets are thin and pliable; valve motion is normal. There is a trace or physiologic amount of pulmonic regurgitation. Great Vessels: The aortic root is normal size. The dimensions of the ascending aorta are normal. The IVC is of normal diameter and collapses greater than 50% with a sniff. This suggests a low right atrial pressure of 3 mm Hg. Pericardium/ Pleura There is no pericardial effusion. There is no pleural effusion. MMode/2D Measurements & Calculations LVIDd: 4.1 cm LVOT diam: 1.9 cm LVIDs: 2.4 cm Ao root diam: 2.8 cm FS: 40.5 % asc Aorta Diam: 2.9 cm IVSd: 0.68 cm Ao Arch Diam (Prox Trans): 2.1 cm LVPWd: 0.87 cm LV chung. diameter/BSA (cm/m^2): 2.5 LV sys. diameter/BSA (cm/m^2): 1.5 LA A2 area: 14.7 cm2 RA long axis: 5.8 cm LA A4 area: 17.0 cm2 RA area: 21.2 cm2 LA length (vol): 4.9 cm RA vol: 65.6 ml LA vol: 43.5 ml RA : 40.3 ml/m2 LA vol index: 26.7 ml/m2 IVC diam: 1.4 cm RVD1 (basal): 3.7 cm RVD2 (mid): 3.2 cm TAPSE: 2.1 cm Doppler Measurements & Calculations Ao V2 max: 165.1 cm/sec LVOT Max Saw: 144.7 cm/sec Ao V2 mean: 120.5 cm/sec LV V1 max P.4 mmHg Ao max P.9 mmHg LV V1 VTI: 25.6 cm Ao mean P.3 mmHg ROSA MARIA(I,D): 2.3 cm2 Ao V2 VTI: 33.4 cm ROSA MARIA(V,D): 2.6 cm2 sev ratio: 0.77 ROSA MARIA indexed to BSA (cm^2/m^2): 1.4 MV E max saw: 84.8 cm/sec TR max saw: 339.2 cm/sec MV A max saw: 99.1 cm/sec TR max P.0 mmHg MV E/A: 0.85 PA V2 max: 81.0 cm/sec Med Peak E' Saw: 9.0 cm/sec PA V2 mean: 57.7 cm/sec E/E' med: 9.4 PA mean P.4 mmHg Lat Peak E' Saw: 7.8 cm/sec PA pr(Accel): 34.5 mmHg E/E' lat: 10.9 E/e' average: 10.2 MV dec time: 0.19 sec SV(LVOT): 75.6 ml Reading Physician:05:26 PM
--- NOTE | 2024-04-16 15:19 | PC.NURSE ---
This RNs first interaction with patient. Patient was in hallway bed, moved to ED room 10 @ [id number]
[2024-04-16 16:30] VITALS: BP 131/69; PULSE 77; RESP 17; O2SAT 93
[2024-04-16 17:00] VITALS: BP 139/63; PULSE 74; RESP 18; TEMP 37; O2SAT 95
[2024-04-16 17:04] LABS: Appearance Urine UA CLEAR; Bilirubin Urine UA NEGATIVE (NEGATIVE); Color Urine UA YELLOW; Glucose Urine UA NEGATIVE (Negative); Ketones Urine UA NEGATIVE (NEGATIVE); Leukocyte Esterase Urine UA 3+ (NEGATIVE); Nitrite Urine UA NEGATIVE (Negative); Occult Blood Urine UA 3+ (Negative); Protein Urine UA 2+ (Negative); Specific Gravity Urine UA 1.015 (1.000-1.035); Urobilinogen Urine UA 0.2 E.U./dL (0.2)
[2024-04-16 17:12] LABS: pH Urine UA 6.5 (4.5-8.0)
[2024-04-16 17:18] LABS: Urine Volume 10mL (spun)
[2024-04-16 17:19] LABS: Bacteria Urine Many (>30); Culture Indicated Urine Specimen Cultured; RBC Urine 1-5/HPF (0-5/HPF); Squamous Epithelial Cell Urine 0-1 /HPF (0-5/HPF); WBC Urine 30-100/HPF (0-5/HPF)
[2024-04-16 17:30] VITALS: BP 139/65; PULSE 80; RESP 18; O2SAT 92
[2024-04-16 18:00] VITALS: BP 139/65; PULSE 75; RESP 17; O2SAT 92
[2024-04-16] MEDS: cefTRIAXone 1,000 MG in SODIUM CHLORIDE 0.9% 100 ML 200 MG IV (18:05)
[2024-04-16] MEDS: SODIUM CHLORIDE 0.9% 1,000 ML 1000 ML IV (18:40)
--- NOTE | 2024-04-16 19:35 | PC.NURSE ---
Patient up to bedside commode, small amount of urine in hat. Patient reports thirst, drinking water.
--- NOTE | 2024-04-16 19:44 | PC.NURSE ---
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 Charge, provider and OWNER MANAGER aware.
[2024-04-16 19:46] VITALS: BP 140/67; PULSE 79; RESP 18; O2SAT 95
[2024-04-16] MEDS: cephALEXin 250 MG CAP PREPACK 1 BOTTLE MISC (20:00)
--- NOTE | 2024-04-17 09:50 | PC.NURSE ---
This RN received call from Yojana from [facility] for this patient. She states that patient was discharged with orders for two antibiotics but only cephalexin was received. This RN checked discharge record and noted the the cefpodoxime 200mg tablet PO Q12hr 10 days quality 20 total was not received by [facility] pharmacy as other antibiotic was. This RN called pharmacy at [phone]. This RN called to Kevin pharmacist at [facility] pharmacy and called in the prescription for the cefpodoxime. Pharmacist confirmed that prescriber was same as other antibiotic Linda Liang and this RN confirmed. This RN left the pharmacist with this department phone number.
== END 2024-04-16 20:08 | disposition home or self-care (01) ==
PROVIDERS: Emergency Provider Student in an Organized Health Care Education/Training Program; Family Provider Family Medicine; PCP Student in an Organized Health Care Education/Training Program
DX: N30.00 Acute cystitis without hematuria (principal); R51.9 Headache, unspecified; R29.6 Repeated falls; W06.XXXA Fall from bed, initial encounter; Z11.52 Encounter for screening for COVID-19; R41.0 Disorientation, unspecified; R53.1 Weakness; F03.90 Unspecified dementia, unspecified severity, without behavioral disturbance, psychotic disturbance, mood disturbance, and anxiety; N18.5 Chronic kidney disease, stage 5; R07.9 Chest pain, unspecified
CPT/HCPCS: 0241U; 36415; 70450; 71045; 72125; 74176; 80053; 81001; 82550; 83605; 83690; 83880; 84484; 85025; 87077; 87086; 87147; 87186; 93005; 93010; 93306; 96361; 96365; 99284; J0696

== ENCOUNTER 2024-04-25 16:25 | Emergency (ER) | payer MEDICARE, SELFPAY ==
[2024-04-25 16:47] VITALS: BP 114/56; PULSE 77; RESP 16; TEMP 36.8; O2SAT 97; BMI 24.9
--- NOTE | 2024-04-25 16:56 | DI.RAD.S_ITS ---
PROCEDURE: XR KNEE LT 3V INDICATIONS: fall with pain TECHNIQUE: 3 views of the knee were acquired. COMPARISON: None. FINDINGS: Bones: No fractures or dislocations. No suspicious bony lesions. Tricompartmental joint space narrowing with associated osteophytosis. Soft tissues: No joint effusion. No suspicious soft tissue calcifications. IMPRESSION: No acute bony abnormality or significant effusion. Dictated by: Foster Lam M.D. on 04/25/2024 at 17:31 Approved by: Foster Lam M.D. on 04/25/2024 at 17:31
[2024-04-25] MEDS: ACETAMINOPHEN 325 MG TABLET 650 MG PO (17:10)
--- NOTE | 2024-04-25 19:20 | ED.LOWEXIN ---
HPI - Extremity Injury (Lower) General Chief Complaint: Extremity Injury, Lower Stated Complaint: Trip/fall Right knee pain Time Seen by Provider: 04/25/24 19:06 Source: patient Mode of arrival: Ambulatory History of Present Illness HPI Narrative: 79-year-old female presents for evaluation of left knee injury. Patient was walking with her today when she tripped and fell, landing on her left knee. She denies hitting her head, denies loss of consciousness, denies use of blood thinners. She was able to bear weight on her left extremity, but it was somewhat painful. She is here today with her to make sure that she does not have a fracture. Related Data Home Medications Medication Instructions Recorded Confirmed albuterol sulfate 2.5 mg/0.5 mL 1 dose INH QID PRN ##0 01/19/16 solution for nebulization beclomethasone dipropionate 40 2 puff INH BID ##0 01/19/16 mcg/actuation aerosol inhaler (Qvar) fluoxetine 20 mg capsule 20 mg OR BID ##0 01/19/16 ipratropium bromide 0.02 % 1 dose INH QID PRN ##0 01/19/16 solution for inhalation lamotrigine 200 mg tablet 200 mg PO QDAY ##0 01/19/16 (Lamictal) lisinopril 5 mg tablet 5 mg PO HS ##0 01/19/16 lorazepam 0.5 mg tablet (Ativan) 0.5 mg PO BID ##0 01/19/16 pravastatin 20 mg tablet 20 mg PO HS ##0 01/19/16 (Pravachol) Previous Rx's Medication Instructions Recorded diclofenac sodium 1 % topical gel 2 g topical QID #100 grams 04/25/24 (Voltaren Arthritis Pain) Allergies Allergy/AdvReac Type Severity Reaction Status Date / Time divalproex sodium Allergy Verified 04/07/24 14:01 [From Depakote] Patient History Social History Smoking Status: Never smoker Smoking Status: Never smoker alcohol intake frequency: holidays/special occasions only Substance Use Type: does not use Exam Initial Vital Signs Initial Vital Signs: Vital Signs Temperature 98.2 F 04/25/24 16:47 Pulse Rate 77 04/25/24 16:47 Respiratory Rate 16 04/25/24 16:47 Blood Pressure 114/56 L 04/25/24 16:47 Pulse Oximetry 97 04/25/24 16:47 Oxygen Delivery Method Room Air 04/25/24 16:47 Const: Awake, alert, no acute distress, nontoxic appearing MSK: no deformity, full range of motion, pulses equal, generalized tenderness to deep palpation over L knee joint, no effusion Skin: Warm, Dry, intact, no rashes Neuro: AO x3, CN II-XII grossly intact, moves all extremities Course Orders Ordered: ED Orders 04/25/24 16:56 XR knee LT 3V Stat Discontinued Medications Acetaminophen (Acetaminophen 325 Mg Tablet) 650 mg PO NOW ONE Stop: 04/25/24 16:59 Last Admin: 04/25/24 17:10 Dose: 650 mg Documented By: CHARLES Vital Signs Vital signs: Vital Signs - 8 hr 04/25/24 16:47 Temperature 98.2 F Pulse Rate 77 Respiratory Rate 16 Blood Pressure 114/56 L Pulse Oximetry 97 Oxygen Delivery Method Room Air [facility] - Extremity Injury (Lower) Imaging Data Extremity x-ray #1: Radiologist's Impression: PROCEDURE: XR KNEE LT 3V INDICATIONS: fall with pain TECHNIQUE: 3 views of the knee were acquired. COMPARISON: None. FINDINGS: Bones: No fractures or dislocations. No suspicious bony lesions. Tricompartmental joint space narrowing with associated osteophytosis. Soft tissues: No joint effusion. No suspicious soft tissue calcifications. IMPRESSION: No acute bony abnormality or significant effusion. Dictated by: Foster Lam M.D. on 04/25/2024 at 17:31 Approved by: Foster Lam M.D. on 04/25/2024 at 17:31 [facility] Narrative Medical decision making narrative: ground level fall with left knee pain. No deformity on exam, full range of motion. X-rays negative for traumatic findings. Patient counseled on results of imaging, she is relieved to know there is no fracture. Voltaren gel prn rx'd for pain Discharge Plan Departure Patient Disposition: Home Clinical Impression: Contusion of knee Qualifiers: Encounter type: initial encounter Laterality: left Qualified Code(s): S80.02XA - Contusion of left knee, initial encounter Instructions: DI for Contusion Activity Restrictions/Additional Instructions: Take Tylenol and apply ice as needed to swelling and pain. Voltaren gel can also help with your pain. Gentle activity is helpful to prevent stiffness Prescriptions: New diclofenac sodium [Voltaren Arthritis Pain] 1 % gel 2 g topical QID Qty: 100 0RF Rx Instructions: apply to single elbow, wrist or hand; for hand includes palm/fingers/back of hand No Action lorazepam [Ativan] 0.5 MG tablet 0.5 mg PO BID Qty: 0 fluoxetine 20 MG capsule 20 mg OR BID Qty: 0 lisinopril 5 MG tablet 5 mg PO HS Qty: 0 lamotrigine [Lamictal] 200 MG tablet 200 mg PO QDAY Qty: 0 pravastatin [Pravachol] 20 MG tablet 20 mg PO HS Qty: 0 beclomethasone dipropionate [Qvar] 40 MCG/PUFF aerosol 2 puff INH BID Qty: 0 albuterol sulfate 2.5 MG/0.5 ML solution for nebulization 1 dose INH QID PRNQty: 0 ipratropium bromide 0.2 MG/1 ML solution 1 dose INH QID PRNQty: 0 Referrals: Blaise Kelsey MD [Primary Care Provider] - Stand Alone Forms: Patient Portal/API/Survey
== END 2024-04-25 19:27 | disposition home or self-care (01) ==
PROVIDERS: Emergency Provider Emergency Medicine; Family Provider Family Medicine; PCP Student in an Organized Health Care Education/Training Program
DX: S80.02XA Contusion of left knee, initial encounter (principal); W01.0XXA Fall on same level from slipping, tripping and stumbling without subsequent striking against object, initial encounter
CPT/HCPCS: 73562; 99283

== ENCOUNTER 2024-05-06 10:04 | Emergency (ER) | payer MEDICARE, SELFPAY ==
[2024-05-06] VITALS (16 sets, daily range): BP systolic 112–135; BP diastolic 55–61; PULSE 74–86; RESP 16–45; TEMP 37.3; O2SAT 88–99; BMI 28.3
--- NOTE | 2024-05-06 10:29 | DI.RAD.S_ITS ---
PROCEDURE: XR CHEST 1V INDICATIONS: chest pain TECHNIQUE: One view of the chest was acquired. COMPARISON: [facility], CR, XR CHEST 1V, 04/16/2024, 11:46. [facility], CR, XR CHEST 1V, 04/07/2024, 13:32. FINDINGS: Surgical changes and devices: None. Lungs and pleura: Blunting of the right costophrenic angle. No consolidation. Mediastinum: Mediastinal contours appear normal. Heart size is enlarged. Bones and chest wall: No suspicious bony lesions. Overlying soft tissues appear unremarkable. IMPRESSION: Suspected small right pleural effusion. Differential includes scar. Dictated by: Foster Lam M.D. on 05/06/2024 at 11:21 Approved by: Foster Lam M.D. on 05/06/2024 at 11:22
--- NOTE | 2024-05-06 10:38 | EKG_ITS ---
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
--- NOTE | 2024-05-06 11:06 | PC.NURSE ---
pt concerned for right hand and right arm pain radiating up to right shoulder with right arm swelling also. She states she was not swollen yesterday. She Denies SOB and chest pain. She is requiring 2L NC to remain above 90% o2 which is new. Pt as low as 88% on room air. Pt does not use oxygen at home. She is oriented to date, situation, and self.
[2024-05-06 11:12] LABS: Add Manual Diff / Slide Review NO; Basophils Absolute Auto 100 /uL (0-100); Eosinophils Absolute Auto 200 /uL (0-450); Hematocrit 32.9 % (36-46); Hemoglobin 10.6 g/dL (12.0-16.0); Lymphocytes Absolute Auto 1100 /uL (1100-4500); Lymphocytes Percent Auto 13.9 % (25-40); Mean Corpuscular HGB Conc 32.2 % (30-36); Mean Corpuscular Hemoglobin 29.8 PG (26-34); Mean Corpuscular Volume 92.7 fL (80-100); Monocytes Absolute Auto 300 /uL (0-900); Monocytes Percent Auto 3.9 % (3-14); Neutrophils Absolute Auto 6400 /uL (1500-7000); Neutrophils Percent Auto 79.2 % (50-75); Platelet Count 246 X10^3/uL (150-400); Red Blood Cell Count 3.55 X10^6/uL (4.0-5.2); Red Cell Distribution Width 13.8 % (11.6-14.8); White Blood Cell Count 8.1 X10^3/uL (4.5-11.0)
--- NOTE | 2024-05-06 11:15 | DI.US.S_ITS ---
PROCEDURE: US PERIPH VENOUS UP EXTREM RT INDICATIONS: right arm swelling/pain/slightly red. TECHNIQUE: Real-time imaging, as well as color and pulse Doppler interrogation, was performed of the upper extremity deep veins from the inferior neck to the antecubital fossa. COMPARISON: None. FINDINGS: The internal jugular vein, visualized portions of the subclavian vein, axillary, and brachial veins are free of intraluminal thrombus. Where physically possible, the veins are normally compressible. Color and pulse Doppler demonstrate normal intraluminal flow, with expected phasicity and pulsatility. Additional scanning of the cephalic and basilic veins of the superficial system demonstrates normal compressibility, without thrombus. IMPRESSION: No findings of upper extremity deep venous thrombosis can be seen. Dictated by: Foster Lam M.D. on 05/06/2024 at 12:14 Approved by: Foster Lam M.D. on 05/06/2024 at 12:15
--- NOTE | 2024-05-06 11:17 | ED.GENADULT ---
HPI - General Adult General Chief complaint: Extremity Injury, Upper Stated complaint: Sweeling of hand and face Time Seen by Provider: 05/06/24 10:47 Source: patient, RN notes reviewed and old records reviewed Mode of arrival: Ambulatory Limitations: no limitations History of Present Illness HPI narrative: 9-year-old female history stage 4 chronic kidney disease, major depressive disorder, adult failure to thrive, bipolar disorder, COPD, dyslipidemia, hypertension, nonrheumatic mitral valve insufficiency, nonrheumatic tricuspid valve insufficiency, GERD, osteoarthritis, renal osteodystrophy, osteoporosis, dysphagia, cognitive communication deficit who presents via EMS for complaint of swelling in your extremities particularly her right upper extremity which she states is painful and swollen. She states it just started today. She denies any fevers. She denies any chest pain or shortness of breath. She was little tachypneic but does not appreciated any increased work of breathing. She denies any cough or orthopnea. Patient denies any nausea or vomiting. Denies any issues with bowel movements or urination. She states her extremities are moving without issue no numbness tingling or weakness. She states her legs do seem a little bit more swollen. She does not feel like her left arm is very swollen at all. Patient is not able to give much history she states she has an inhaler, she denied any anticoagulants but per her med list takes aspirin, amlodipine, pravastatin, doxazosin, olanzapine, Ellipta inhalation, fluticasone inhaler, calcinet and fluoxetine. She denies any prior surgeries or cardiac issues. She denies drug allergies but has 1 reported as Depakote in the EMR. She denies any tobacco use former or current, no alcohol or recreational drugs. She lives at [facility]. She is unsure if her primary care physician. She has a POLST form that states full code. Related Data Home Medications Medication Instructions Recorded Confirmed albuterol sulfate 2.5 mg/0.5 mL 1 dose INH QID PRN ##0 01/19/16 solution for nebulization beclomethasone dipropionate 40 2 puff INH BID ##0 01/19/16 mcg/actuation aerosol inhaler (Qvar) fluoxetine 20 mg capsule 20 mg OR BID ##0 01/19/16 ipratropium bromide 0.02 % 1 dose INH QID PRN ##0 01/19/16 solution for inhalation lamotrigine 200 mg tablet 200 mg PO QDAY ##0 01/19/16 (Lamictal) lisinopril 5 mg tablet 5 mg PO HS ##0 01/19/16 lorazepam 0.5 mg tablet (Ativan) 0.5 mg PO BID ##0 01/19/16 pravastatin 20 mg tablet 20 mg PO HS ##0 01/19/16 (Pravachol) Previous Rx's Medication Instructions Recorded diclofenac sodium 1 % topical gel 2 g topical QID #100 grams 04/25/24 (Voltaren Arthritis Pain) furosemide 20 mg tablet (Lasix) 20 mg PO DAILY #7 tabs 05/06/24 Allergies Allergy/AdvReac Type Severity Reaction Status Date / Time divalproex sodium Allergy Verified 04/07/24 14:01 [facility] Review of Systems Review of Systems ROS Unobtainable: All systems reviewed & are unremarkable except as noted in HPI and below Patient History Medical History (Updated 05/06/24 @ 13:26 by Aisha Victoria DO) History of dysphagia Hx of osteoporosis Hx of osteoarthritis Hx of gastroesophageal reflux (GERD) Hx of essential hypertension History of high cholesterol History of COPD Hx of failure to thrive syndrome Hx of bipolar disorder Hx of major depression Hx of chronic kidney disease Social History Smoking Status: Never smoker Smoking Status: Never smoker alcohol intake frequency: holidays/special occasions only Substance Use Type: does not use Exam Narrative Exam Narrative: GENERAL: Alert and oriented, female in mild distress. HEENT: Head normocephalic, atraumatic, EOMI, pupils reactive, face symmetric, moist mucous membranes NECK: Supple, full range of motion CARDIOVASCULAR: Regular rate and rhythm without murmurs, rubs or gallops. RESPIRATORY: Breath sounds equal bilaterally, no wheezes, no rales or rhonchi, patient has a little bit of crackles in the right. She was tachypneic, mild SCM but no intercostal or subcostal accessory muscle use. ABDOMEN: Soft, nontender. Nondistended. Normoactive bowel sounds all 4 quadrants. No guarding or rebound, rigidity, no mass : No CVA tenderness EXTREMITIES: Normal range of motion, no clubbing. Patient does have some mild edema of the right extremity comparison to the left extending from hand all the way up there is some mild erythema. Patient was able to fully range of motion both extremities but complains of some discomfort throughout the arm. No edema appreciated bilateral lower extremities. Neurovascularly intact NEUROLOGICAL: Cranial nerves II through XII grossly intact. Moving all extremities SKIN: Warm, dry, no petechiae, no rashes or lesions. Initial Vital Signs Initial Vital Signs: Vital Signs Blood Pressure 125/61 05/06/24 10:10 Course Orders Ordered: ED Orders 05/06/24 10:25 Covid-19 + FLU A/B + RSV - PCR Stat 05/06/24 10:29 XR chest 1V Stat EKG-12 Lead Stat 05/06/24 10:55 Complete Blood Count AUTO DIFF Stat Comprehensive Metabolic Panel Stat DD [D Dimer] Stat Lipase Stat Magnesium Stat NT-proBNP (BNP-Adult 18+) Stat PTT Partial Thromboplastin Arcaido Stat Prothrombin Time INR Stat Troponin & CK Cardiac Panel Stat 05/06/24 11:15 US periph venous up extrem rt Stat Discontinued Medications Albuterol/Ipratropium (Albuterol/Ipratropium 3 Ml Ampul) 3 ml INH NOW ONE Stop: 05/06/24 11:16 Last Admin: 05/06/24 11:21 Dose: 3 ml Documented By: MR Furosemide (Furosemide 40 Mg/4 Ml Vial) 40 mg IV NOW ONE Stop: 05/06/24 11:50 Last Admin: 05/06/24 11:53 Dose: 40 mg Documented By: TC Piperacillin Sod/Tazobactam (Sod 4.5 gm/ Sodium Chloride) 100 mls @ 200 mls/hr IV NOW ONE Stop: 05/06/24 11:16 Last Infusion: 05/06/24 11:53 Dose: Infused Documented By: Admin: 05/06/24 11:25 Dose: 200 mls/hr Documented By: TC Methylprednisolone (Methylprednisolone 125 Mg/2 Ml Vial) 125 mg IV NOW ONE Stop: 05/06/24 13:11 Last Admin: 05/06/24 13:17 Dose: 125 mg Documented By: TC Vital Signs Vital signs: Vital Signs - 8 hr 05/06/24 11:00 05/06/24 11:00 05/06/24 11:24 Pulse Rate 75 75 Respiratory Rate 23 20 Blood Pressure 116/58 L Pulse Oximetry 98 Oxygen Delivery Method Nasal Cannula Nasal Cannula Oxygen Flow Rate 2 2 Fraction of Inspired Oxygen 93 05/06/24 11:30 05/06/24 11:30 05/06/24 12:00 Pulse Rate 77 Respiratory Rate 21 Blood Pressure 119/56 L 112/55 L Pulse Oximetry 99 Oxygen Delivery Method Oxygen Flow Rate Fraction of Inspired Oxygen 05/06/24 12:00 05/06/24 12:30 05/06/24 13:00 Pulse Rate 74 86 77 Respiratory Rate 20 21 33 H Blood Pressure Pulse Oximetry 95 95 Oxygen Delivery Method Oxygen Flow Rate Fraction of Inspired Oxygen 05/06/24 13:18 05/06/24 13:18 05/06/24 13:30 Pulse Rate 75 Respiratory Rate 35 H Blood Pressure 119/55 L 119/61 Pulse Oximetry 93 Oxygen Delivery Method Oxygen Flow Rate Fraction of Inspired Oxygen 05/06/24 13:30 05/06/24 14:00 05/06/24 14:00 Pulse Rate 76 78 Respiratory Rate 45 H 38 H Blood Pressure 132/58 L Pulse Oximetry 96 96 Oxygen Delivery Method Oxygen Flow Rate Fraction of Inspired Oxygen 05/06/24 14:30 05/06/24 14:30 05/06/24 15:00 Pulse Rate 79 78 Respiratory Rate 20 22 Blood Pressure 128/58 L Pulse Oximetry 92 89 L Oxygen Delivery Method Room Air Room Air Oxygen Flow Rate Fraction of Inspired Oxygen 05/06/24 15:00 05/06/24 15:35 Pulse Rate 80 Respiratory Rate 30 H Blood Pressure 135/60 131/60 Pulse Oximetry 89 L Oxygen Delivery Method Room Air Oxygen Flow Rate Fraction of Inspired Oxygen Medical Decision Making Lab Data 05/06/24 10:55 05/06/24 10:55 Labs: Lab Results 05/06/24 05/06/24 Range/Units 10:25 10:55 WBC 8.1 (4.5-11.0) X10^3/uL RBC 3.55 L (4.0-5.2) X10^6/uL Hgb 10.6 L (12.0-16.0) g/dL Hct 32.9 L (36-46) % MCV 92.7 (80-100) fL MCH 29.8 (26-34) PG MCHC 32.2 (30-36) % RDW 13.8 (11.6-14.8) % Plt Count 246 (150-400) X10^3/uL Neut % (Auto) 79.2 H (50-75) % Lymph % (Auto) 13.9 L (25-40) % Republic % (Auto) 3.9 (3-14) % Eos % (Auto) 2.0 (2-4) % Baso % (Auto) 1.0 (0-2) % Neut # (Auto) 6400 (9988-4491) /uL Lymph # (Auto) 1100 (6264-0270) /uL Republic # (Auto) 300 (0-900) /uL Eos # (Auto) 200 (0-450) /uL Baso # (Auto) 100 (0-100) /uL PT 11.4 (9.4-12.5) SECONDS INR 1.0 (0.9-1.3) APTT 28 (25.1-36.5) SECONDS D-Dimer 65052 H (<500) ng/ml Sodium 144 (137-145) mmol/L Potassium 4.8 (3.4-5.1) mmol/L Chloride 111 H (98-107) mmol/L Carbon Dioxide 25 (22-32) mmol/L BUN 53 H (7-17) mg/dL Creatinine 3.59 H (0.52-1.04) mg/dL Estimated GFR 12 L (>60) mL/min BUN/Creatinine Ratio 14.8 (6-22) Glucose 95 (80-110) mg/dL Calcium 7.6 L (8.4-10.2) mg/dL Magnesium 2.1 (1.6-2.3) mg/dL Total Bilirubin 0.5 (0.2-1.3) mg/dL AST 21 (14-36) IU/L ALT 12 (<35) IU/L Alkaline Phosphatase 91 (38-126) U/L Total Creatine Kinase 65 (30-135) U/L Troponin I 0.017 (0.01-0.034) ng/mL NT-Pro-B Natriuret Pep 1890 H (<450) pg/mL Total Protein 6.3 (6.3-8.2) g/dL Albumin 3.4 L (3.5-5.0) g/dL Globulin 2.9 (1.7-4.1) g/dL Albumin/Globulin Ratio 1.2 (1.0-2.8) Lipase 94 (23-300) U/L SARS-CoV-2 (PCR) Negative (Negative) Influenza A (RT-PCR) Flu a negative (NEGATIVE) Influenza B (RT-PCR) Flu b negative (NEGATIVE) RSV (PCR) Negative (Negative) Imaging Data Chest x-ray: Radiologist's Impression: Rosanna Dangelo??79??F??1945 ? Allergy/Adv: divalproex sodium Close Peripheral Vascular Ultrasound (Signed) Foster Lam - 05/06/24 Chest X-Ray (Signed) Foster Lam - 05/06/24 Knee X-Ray (Signed) Foster Lam - 04/25/24 Echocardiogram Ultrasound (Signed) Robinson Atkinson - 04/16/24 Abdomen/Pelvis CT (Signed) Byron Aleman - 04/16/24 Chest X-Ray (Signed) Usha Buitrago - 04/16/[address] (Signed) Usha Buitrago - 04/16/[address] (Signed) Usha Buitrago - 04/16/24 Hip X-Ray (Signed) Pato De La Cruz - 04/07/24 Chest X-Ray (Signed) Pato De La Cruz - 04/07/24 Renal Ultrasound (Signed) Desmond Ybarra - 03/19/24 [facility] [address] XRay Report Signed Patient: Rosanna Dangelo MR#: [id number] : 1945 Acct:[id number] Age/Sex: 79 / F Date of Service: 05/06/24 Loc: ED Accession Number: [id number] Procedure: XR chest 1V Ordering Provider: Aisha Victoria D.O. PROCEDURE: XR CHEST 1V INDICATIONS: chest pain TECHNIQUE: One view of the chest was acquired. COMPARISON: [facility], CR, XR CHEST 1V, 04/16/2024, 11:46. [facility], CR, XR CHEST 1V, 04/07/2024, 13:32. FINDINGS: Surgical changes and devices: None. Lungs and pleura: Blunting of the right costophrenic angle. No consolidation. Mediastinum: Mediastinal contours appear normal. Heart size is enlarged. Bones and chest wall: No suspicious bony lesions. Overlying soft tissues appear unremarkable. IMPRESSION: Suspected small right pleural effusion. Differential includes scar. Dictated by: Foster Lam M.D. on 05/06/2024 at 11:21 Approved by: Foster Lam M.D. on 05/06/2024 at 11:22 US - DVT: Radiologist's Impression: Rosanna Dangelo??79??F??1945 ? Allergy/Adv: divalproex sodium Close Peripheral Vascular Ultrasound (Signed) Foster Lam - 05/06/24 Chest X-Ray (Signed) Foster Lam - 05/06/24 Knee X-Ray (Signed) Foster Lam - 04/25/24 Echocardiogram Ultrasound (Signed) Robinson Atkinson - 04/16/24 Abdomen/Pelvis CT (Signed) Byron Aleman - 04/16/24 Chest X-Ray (Signed) Usha Buitrago - 04/16/[address] (Signed) Usha Buitrago - 04/16/[address] (Signed) Usha Buitrago - 04/16/24 Hip X-Ray (Signed) Pato De La Cruz - 04/07/24 Chest X-Ray (Signed) Pato De La Cruz - 04/07/24 Renal Ultrasound (Signed) Desmond Ybarra - 03/19/24 [place] [address] Ultrasound Report Signed Patient: Rosanna Dangelo MR#: [id number] : 1945 Acct:[id number] Age/Sex: 79 / F Date of Service: 05/06/24 Loc: ED Accession Number: [id number] Procedure: US periph venous up extrem rt Ordering Provider: Aisha Victoria D.O. PROCEDURE: US PERIPH VENOUS UP EXTREM RT INDICATIONS: right arm swelling/pain/slightly red. TECHNIQUE: Real-time imaging, as well as color and pulse Doppler interrogation, was performed of the upper extremity deep veins from the inferior neck to the antecubital fossa. COMPARISON: None. FINDINGS: The internal jugular vein, visualized portions of the subclavian vein, axillary, and brachial veins are free of intraluminal thrombus. Where physically possible, the veins are normally compressible. Color and pulse Doppler demonstrate normal intraluminal flow, with expected phasicity and pulsatility. Additional scanning of the cephalic and basilic veins of the superficial system demonstrates normal compressibility, without thrombus. IMPRESSION: No findings of upper extremity deep venous thrombosis can be seen. Dictated by: Foster Lam M.D. on 05/06/2024 at 12:14 Approved by: Foster Lam M.D. on 05/06/2024 at 12:15 ECG Data Attestation: I personally reviewed and interpreted this ECG as follows: Prior ECG tracings: available for review Interpretation: Normal sinus rhythm right axis deviation rate of 78 MT 150 QRS is 64 QTC of 453. Seven little bit of motion artifact. Nonspecific change. [facility] Narrative Medical decision making narrative: 9-year-old comes in with complaint of swelling particularly right upper extremity has a little bit slightly red and swollen and erythematous. Patient states she uses O2 at night normally. No O2 use noted in paperwork from [facility]. Patient's CBC shows hemoglobin of 10.6 consistent with priors over the past month, white count 8.1 platelets of 246 predominance of neutrophils. Coags are negative, D-dimer is 22,118 Chemistries show sodium 144 potassium 4.8 chloride of 111 CO2 of 25 BUN 53 creatinine of 3.59 appears consistent with priors from earlier April calcium is 7.6 LFTs are negative troponin 0.017 with a BNP of 18 90 somewhat improved from prior. Chest x-ray shows some possible aspiration right cardiac border on prelim read. Formal read shows suspected small right pleural effusion differential includes scar. COVID/influenza/RSV is negative Ultrasound right upper extremity is negative. Patient is not particularly wheezy but does have little bit of work of breathing was given a DuoNeb as she states she does use inhalers. Was also given a dose of IV antibiotics as I suspect some potential aspiration. 1252 Spoke with hospitalist, Dr. Mercer: He was going to review patient's Care everywhere and chart to see about imaging as patient does have a quite high D-dimer but with her renal dysfunction is not optimal to order CT with contrast would likely still want imaging of the chest. He will call back with recommendations after reviewing the chart. Dr. Mercer was able to access patient's notes from care everywhere as well as her nephrology notes. At this time would not obtain further imaging of the chest, patient's vital signs do not seem particularly consistent with PE or significant PE and would not starting anticoagulation. He notes swelling in the arm appears improved he had been here in the department, he would recommend restarting patient's Lasix but at 20 mg. He notes Lasix was DC about 2 months ago she was taking 40 mg daily she has not had a significant change in her creatinine since then and would recommend to restart at 20 mg daily and short term follow up with Nephrology. We did discuss patient's labs including her D-dimer here today, chest x-ray and workup. Patient was trialed on room air was 92% afterwards, but does occasionally dip back down. She states she has a O2 at her facility, [place] they state she does not have oxygen. Reviewed all of her findings from today we did review her dimer is quite elevated this can sometimes be blood clot but can be elevated for other reasons including renal dysfunction. Discussed would probably hold off on CT imaging to avoid injury to her kidneys that is our suspicion for blood clot as much lower at this time. Patient feels comfortable with this plan reviewed all of her findings today she was comfortable with restarting Lasix and desires return back home. Patient's arm slightly swollen very slightly red but otherwise overall very well-appearing would not started on antibiotics at this time. Trial the patient off oxygen she has not had any persistent dips after little bit of diuresis, DuoNeb and Solu-Medrol. Discharge Plan Departure Patient Disposition: Home Clinical Impression: Swelling of extremity, CHF (congestive heart failure), CKD (chronic kidney disease) stage 4, GFR 15-29 ml/min Activity Restrictions/Additional Instructions: Please follow up with your hand stripper, your renal function appears stable but she may have a little bit of fluid overload. I spoke with the hospitalist today and they recommended increasing your Lasix to 20 mg daily and following up your hand stripper for further recommendations and rechecked. You received 40 mg Lasix IV today Prescription for Lasix 20mg once daily was sent to [facility], take your next dose tomorrow. Please return for new or worsening chest pain, shortness of breath, increasing swelling redness or pain in your arm, fevers, lightheadedness or passing out or other new or concerning changes. Prescriptions: New furosemide [Lasix] 20 mg tablet 20 mg PO DAILY Qty: 7 0RF No Action lorazepam [Ativan] 0.5 MG tablet 0.5 mg PO BID Qty: 0 fluoxetine 20 MG capsule 20 mg OR BID Qty: 0 lisinopril 5 MG tablet 5 mg PO HS Qty: 0 lamotrigine [Lamictal] 200 MG tablet 200 mg PO QDAY Qty: 0 pravastatin [Pravachol] 20 MG tablet 20 mg PO HS Qty: 0 beclomethasone dipropionate [Qvar] 40 MCG/PUFF aerosol 2 puff INH BID Qty: 0 albuterol sulfate 2.5 MG/0.5 ML solution for nebulization 1 dose INH QID PRNQty: 0 ipratropium bromide 0.2 MG/1 ML solution 1 dose INH QID PRNQty: 0 diclofenac sodium [Voltaren Arthritis Pain] 1 % gel 2 g topical QID Qty: 100 0RF Rx Instructions: apply to single elbow, wrist or hand; for hand includes palm/fingers/back of hand Referrals: Blaise Kelsey MD [Primary Care Provider] - Stand Alone Forms: Patient Portal/API/Survey
[2024-05-06 11:18] LABS: Influenza A - CEPHEID Flu A NEGATIVE (NEGATIVE); Influenza B - CEPHEID Flu B NEGATIVE (NEGATIVE); Respiratory Syncytial Virus Negative (Negative)
[2024-05-06 11:19] LABS: COVID-19 CEPHEID 4-PLEX PCR Negative (Negative)
[2024-05-06] MEDS: ALBUTEROL/IPRATROPIUM 3 ML AMPUL INH (11:21)
[2024-05-06 11:23] LABS: Prothrombin Time 11.4 SECONDS (9.4-12.5)
[2024-05-06 11:25] LABS: PTT Partial Thromboplastin Tim 28 SECONDS (25.1-36.5)
[2024-05-06] MEDS: PIPERACILLIN/TAZO 4.5 GM in SODIUM CHLORIDE 0.9% 100 ML IV (11:25)
[2024-05-06 11:27] LABS: Alanine Aminotransferase 12 IU/L (<35); Albumin 3.4 g/dL (3.5-5.0); Albumin Globulin Ratio 1.2 (1.0-2.8); Alkaline Phosphatase 91 U/L (38-126); Aspartate Aminotransferase 21 IU/L (14-36); BUN Creatinine Ratio 14.8 (6-22); Bilirubin Total 0.5 mg/dL (0.2-1.3); Blood Urea Nitrogen 53 mg/dL (7-17); Calcium 7.6 mg/dL (8.4-10.2); Carbon Dioxide 25 mmol/L (22-32); Chloride 111 mmol/L (98-107); Creatine Kinase 65 U/L (30-135); Estimated Glomerular Filt Rate 12 mL/min (>60); Globulin 2.9 g/dL (1.7-4.1); Glucose 95 mg/dL (80-110); HEMOLYSIS < 15 (0-50); Lipase 94 U/L (23-300); Magnesium 2.1 mg/dL (1.6-2.3); Potassium 4.8 mmol/L (3.4-5.1); Sodium 144 mmol/L (137-145); Total Protein 6.3 g/dL (6.3-8.2)
[2024-05-06 11:37] LABS: D Dimer 22118 ng/ml (<500); NT-proBNP (BNP-Adult 18+) 1890 pg/mL (<450); Troponin I 0.017 ng/mL (0.01-0.034)
[2024-05-06] MEDS: FUROSEMIDE 40 MG/4 ML VIAL IV (11:53)
[2024-05-06] MEDS: methylPREDNISolone 125 MG/2 ML VIAL IV (13:17)
--- NOTE | 2024-05-06 13:18 | P.CONS_ITS ---
History of Present Illness Consult details Date Patient Seen: 05/06/24 Time Patient Seen: 13:18 Chief complaint: Sweeling of hand and face Reason for consult: hypoxia, edema Requesting provider: Aisha Victoria Narrative: This is a 79 year old female with PMH of COPD, HTN, CKD IV-V, bipolar with recent major depressive disorder and cognitive impairment, recent FTT admitted to SNF then assisted living at [facility]. She was re-established with nephrology (Dr. Alford, [facility]) in March of this year. It looks like during that encounter 40 mg of daily lasix was discontinued though this cannot be entirely reconciled based on available documentation. Today she presented with R hand and arm swelling, patient states it has been for the past day only. She denies a fall prior to this swelling today. She denies any LE edema, shortness of breath, chest pain, orthopnea, or decreased appetite. She was noted to be as low as 88% on room air in the ER, was okay on 2L. She was given a dose of furosemide. Upon my evaluation, patient was 89-94% on room air, 90% with movement. She denied any current symptoms and thought her arms appeared improved. CXR showed possible small R pleural effusion / blunting of the costophrenic angle. RUE ultrasound showed no DVT. Meds Home Medications and Allergies Home Medications Medication Instructions Recorded Confirmed Type albuterol sulfate 2.5 mg/0.5 mL 1 dose INH QID PRN ##0 01/19/16 History solution for nebulization beclomethasone dipropionate 40 2 puff INH BID ##0 01/19/16 History mcg/actuation aerosol inhaler (Qvar) fluoxetine 20 mg capsule 20 mg OR BID ##0 01/19/16 History ipratropium bromide 0.02 % 1 dose INH QID PRN ##0 01/19/16 History solution for inhalation lamotrigine 200 mg tablet 200 mg PO QDAY ##0 01/19/16 History (Lamictal) lisinopril 5 mg tablet 5 mg PO HS ##0 01/19/16 History lorazepam 0.5 mg tablet (Ativan) 0.5 mg PO BID ##0 01/19/16 History pravastatin 20 mg tablet 20 mg PO HS ##0 01/19/16 History (Pravachol) diclofenac sodium 1 % topical gel 2 g topical QID #100 grams 04/25/24 Rx (Voltaren Arthritis Pain) furosemide 20 mg tablet (Lasix) 20 mg PO DAILY #7 tabs 05/06/24 Rx Allergies Allergy/AdvReac Type Severity Reaction Status Date / Time divalproex sodium Allergy Verified 04/07/24 14:01 [facility] Review of Systems Review of Systems Narrative: All other systems reviewed with the patient and are negative unless otherwise stated. Exam Vital Signs (past 8 hours): - 05/06/24 10:10 05/06/24 10:14 05/06/24 10:27 Temperature 99.1 F Pulse Rate 80 Respiratory Rate 16 Blood Pressure 125/61 125/61 Pulse Oximetry 92 88 L Oxygen Delivery Method Nasal Cannula Room Air Oxygen Flow Rate 2 Fraction of Inspired Oxygen 05/06/24 10:30 05/06/24 10:30 05/06/24 11:00 Temperature Pulse Rate 78 75 Respiratory Rate 23 Blood Pressure 127/58 L Pulse Oximetry 93 98 Oxygen Delivery Method Nasal Cannula Nasal Cannula Oxygen Flow Rate 2 2 Fraction of Inspired Oxygen 05/06/24 11:00 05/06/24 11:24 05/06/24 11:30 Temperature Pulse Rate 75 Respiratory Rate 20 Blood Pressure 116/58 L 119/56 L Pulse Oximetry Oxygen Delivery Method Nasal Cannula Oxygen Flow Rate 2 Fraction of Inspired Oxygen 93 05/06/24 11:30 05/06/24 12:00 05/06/24 12:00 Temperature Pulse Rate 77 74 Respiratory Rate 21 20 Blood Pressure 112/55 L Pulse Oximetry 99 95 Oxygen Delivery Method Oxygen Flow Rate Fraction of Inspired Oxygen Fraction of Inspired Oxygen 93 Oxygen Delivery Method Nasal Cannula Oxygen Flow Rate 2 Narrative Exam Narrative: General:? Patient is well developed and well nourished, in no distress at this time. HEENT:? Normocephalic, atraumatic, extraocular muscles intact, oral pharynx is clear and mucous membranes are moist. Neck: supple and symmetric, trachea is midline, no cervical adenopathy. Negative for JVD Chest:? Normal AP diameter and contour without kyphoscoliosis, no tachypnea, equal chest rise bilaterally. Lungs:? CTA b/l no wheezing rhonchi or rales. Cardio:?RRR no m/r/g. Abdomen: S NT ND. + hernia, non tender, reducible Musculoskeletal:? Muscle strength and tone are equal within normal limits, no deformity. Extremities: No edema or joint effusions. No cyanosis or clubbing. Mild bilateral upper extremity edema, non-pitting. Skin:? Pale,? Warm to touch,dry and intact without rashes, ulcerations or petechiae.? Objective ECG Impression: NSR. No acute ischmic changes per my interpretation. Labs 05/06/24 10:55 05/06/24 10:55 Labs: Laboratory Results - last 24 hr 05/06/24 05/06/24 10:25 10:55 WBC 8.1 RBC 3.55 L Hgb 10.6 L Hct 32.9 L MCV 92.7 MCH 29.8 MCHC 32.2 RDW 13.8 Plt Count 246 Neut % (Auto) 79.2 H Lymph % (Auto) 13.9 L [place] % (Auto) 3.9 Eos % (Auto) 2.0 Baso % (Auto) 1.0 Neut # (Auto) 6400 Lymph # (Auto) 1100 [place] # (Auto) 300 Eos # (Auto) 200 Baso # (Auto) 100 PT 11.4 INR 1.0 APTT 28 D-Dimer 46610 H Sodium 144 Potassium 4.8 Chloride 111 H Carbon Dioxide 25 BUN 53 H Creatinine 3.59 H Estimated GFR 12 L BUN/Creatinine Ratio 14.8 Glucose 95 Calcium 7.6 L Magnesium 2.1 Total Bilirubin 0.5 AST 21 ALT 12 Alkaline Phosphatase 91 Total Creatine Kinase 65 Troponin I 0.017 NT-Pro-B Natriuret Pep 1890 H Total Protein 6.3 Albumin 3.4 L Globulin 2.9 Albumin/Globulin Ratio 1.2 Lipase 94 SARS-CoV-2 (PCR) Negative Influenza A (RT-PCR) Flu a negative Influenza B (RT-PCR) Flu b negative RSV (PCR) Negative [facility] Medical History (Updated 05/06/24 @ 13:26 by Aisha Victoria DO) History of dysphagia Hx of osteoporosis Hx of osteoarthritis Hx of gastroesophageal reflux (GERD) Hx of essential hypertension History of high cholesterol History of COPD Hx of failure to thrive syndrome Hx of bipolar disorder Hx of major depression Hx of chronic kidney disease Tobacco & Substance Use Smoking Status: Never smoker Assessment & Plan Assessment & Plan narrative: Diagnoses: 1. Edema of the RUE 2. COPD without exacerbation 3. Bipolar disorder, Major depression, and cognitive impairment 4. 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 Elevated D-dimer 6. Renal osteodystrophy 7. HTN 8. Small R pleural effusion suspected. This is a 79 year old female with PMH of COPD, HTN, CKD IV-V, bipolar with recent major depressive disorder and cognitive impairment, recent FTT admitted to [facility] (01/2024 from admission to [facility] it seems) and discharged to SNF, then appears to have transferred to assisted living at [facility] who presented with RUE swelling for 1 day. Examination is negative for DVT in the ER. While she did drop slightly to 88% on room air, in the setting of chronic COPD and upon my evaluation she was consistently in the low 90s on room air this is likely her baseline at this time. Given no respiratory complaints currently, recommend discharge home. Despite elevated D-dimer, I do not suspect PE as her evaluation today appears consistent with previous documentation reviewed from outside records, she has no respiratory complaints, and the risks of contrast administration given her renal disease likely outweigh PE evaluation in a low to moderate risk patient at this time. It does appear furosemide 40 mg daily was stopped at some point based on review of nephrology documentation. This presentation may represent volume overload from her underlying severe renal disease, though her Cr appears stable today from comparison to her animal therapist's note from March. Given her CXR appearance and edema that did improve with dose of furosemide in the ER today quite quickly, I recommend re- initiation of furosemide 20 mg daily (realizing this is a fairly small dose in the setting of her renal disease), and repeat blood work in 1-2 weeks to evaluate potassium and creatinine levels. She should try and see a animal therapist for further management of these medications as well in the near future for additional guidance. From the last note in March 2024 it was not clear if she would follow in [place] or try to establish care with [facility]. No other changes to her home medications are currently recommended. Please follow her blood pressure daily at [facility] after initiation of furosemide, as she does have a history of orthostasis as well that required midodrine. If blood pressures do fall, consider stopping furosemide and repeat assessment with nephrology as noted above. The above history was gathered from reports obtained from hospital discharge summary and evaluation from 01/2024 and nephrology note from 03/2024 as well. Code: Full, surrogate is patient's son I have utilized all available immediate resources to obtain, update, or review the patient's current medications. Dispo: Recommend discharge home from the ER. Additional history obtained via discussions with the ER provider and review of outside records. These discussions contributed to the creation of the above assessment and plan. I have reviewed patient's presenting documentation, labs, and imaging personally. Time-Based Coding :: [TOTAL MINUTES] spent with patient and on the chart (including review of chart, obtaining history, exam, reviewing outside data, placing orders, documenting exam and treatment plan, and counseling patient) on [DATE].
--- NOTE | 2024-05-06 14:56 | PC.NURSE ---
Patient O2 removed at 1428, she did desat to 89% several times over the 20 min time however without intervention she did go back up to 90-92 %. Physician did determine patient is ok to D/C home.
== END 2024-05-06 15:36 | disposition home or self-care (01) ==
PROVIDERS: Emergency Provider Emergency Medicine; Family Provider Family Medicine; PCP Student in an Organized Health Care Education/Training Program
DX: I50.9 Heart failure, unspecified (principal); R60.0 Localized edema; R07.9 Chest pain, unspecified; N18.4 Chronic kidney disease, stage 4 (severe); R06.82 Tachypnea, not elsewhere classified; R09.02 Hypoxemia; R79.89 Other specified abnormal findings of blood chemistry; J44.9 Chronic obstructive pulmonary disease, unspecified; F31.9 Bipolar disorder, unspecified
CPT/HCPCS: 0241U; 36415; 71045; 80053; 82550; 83690; 83735; 83880; 84484; 85025; 85379; 85610; 85730; 93005; 93010; 93971; 94640; 96365; 96375; 99285; J1940; J2543; J2919

== ENCOUNTER 2024-05-17 09:38 | Emergency (ER) | payer MEDICARE, SELFPAY ==
[2024-05-17] VITALS (31 sets, daily range): BP systolic 114–145; BP diastolic 56–72; PULSE 76–104; RESP 19–38; TEMP 37.1–37.2; O2SAT 86–98; BMI 29.9
--- NOTE | 2024-05-17 09:46 | ED.SOB ---
HPI - SOB/Dyspnea <Aisha Victoria, DO - Last Filed: 05/18/24 18:10> General Chief Complaint: Shortness of Breath/Dyspnea Stated Complaint: Shortness of breath Time Seen by Provider: 05/17/24 09:45 Source: patient, RN notes reviewed and old records reviewed Mode of arrival: EMS Limitations: no limitations History of Present Illness HPI Narrative: 79-year-old female history stage 4 chronic kidney disease, major depressive disorder, adult failure to thrive, bipolar disorder, COPD, dyslipidemia, hypertension, nonrheumatic heart mitral valve insufficiency, nonrheumatic tricuspid valve insufficiency, GERD, osteoarthritis, renal osteodystrophy, osteoporosis, dysphagia, cognitive communication deficit who presents via EMS for shortness of breath. Patient notes that she has had increased shortness of breath for the past several days. She denies any chest pain or pressure. She states she has had a cough she describes it as dry. No fevers or chills. No changes to mentation reported. No nausea or vomiting. She denies any changes to bowel movements. States she has been urinating without any new changes. She was unsure if she has not any new swelling in her lower extremities. Is noted that her diuretic was stopped on the 13 of May. She was recently here on 05/06/2024 and seen for swelling extremity and CHF, CKD. States she does have an inhaler but does not use it much. Had a DuoNeb this morning which he found helpful at 8:00 a.m., had albuterol with EMS which he found a little bit helpful. Patient denies any prior surgeries or cardiac issues. Denies any drug allergies but has 1 reported Depakote in EMR. Former tobacco user states quit many years ago, no alcohol or recreational drugs. Lives at [facility]. Related Data Home Medications Medication Instructions Recorded Confirmed albuterol sulfate 2.5 mg/0.5 mL 1 dose INH QID PRN ##0 01/19/16 solution for nebulization beclomethasone dipropionate 40 2 puff INH BID ##0 01/19/16 mcg/actuation aerosol inhaler (Qvar) fluoxetine 20 mg capsule 20 mg OR BID ##0 01/19/16 ipratropium bromide 0.02 % 1 dose INH QID PRN ##0 01/19/16 solution for inhalation lamotrigine 200 mg tablet 200 mg PO QDAY ##0 01/19/16 (Lamictal) lisinopril 5 mg tablet 5 mg PO HS ##0 01/19/16 lorazepam 0.5 mg tablet (Ativan) 0.5 mg PO BID ##0 01/19/16 pravastatin 20 mg tablet 20 mg PO HS ##0 01/19/16 (Pravachol) Previous Rx's Medication Instructions Recorded diclofenac sodium 1 % topical gel 2 g topical QID #100 grams 04/25/24 (Voltaren Arthritis Pain) furosemide 20 mg tablet (Lasix) 20 mg PO DAILY #7 tabs 05/06/24 Allergies Allergy/AdvReac Type Severity Reaction Status Date / Time divalproex sodium Allergy Verified 04/07/24 14:01 [From [facility]] Review of Systems <Aisha Victoria DO - Last Filed: 05/18/24 18:10> Review of Systems ROS Unobtainable: All systems reviewed & are unremarkable except as noted in HPI and below Patient History <Aisha Victoria DO - Last Filed: 05/18/24 18:10> Medical History History of dysphagia Hx of osteoporosis Hx of osteoarthritis Hx of gastroesophageal reflux (GERD) Hx of essential hypertension History of high cholesterol History of COPD Hx of failure to thrive syndrome Hx of bipolar disorder Hx of major depression Hx of chronic kidney disease Social History Smoking Status: Former smoker Smoking Status: Never smoker alcohol intake frequency: holidays/special occasions only Exam <Aisha Victoria DO - Last Filed: 05/18/24 18:10> Narrative Exam Narrative: GENERAL: Alert and oriented x three, elderly female in mild distress HEENT: Head normocephalic, atraumatic, EOMI, pupils reactive, face symmetric, moist mucous membranes NECK: Supple, full range of motion CARDIOVASCULAR: Regular rate and rhythm without murmurs, rubs or gallops. RESPIRATORY: Breath sounds equal bilaterally, no wheezes, patient has crackles bilateral bases no rhonchi. Some mild tachypnea. ABDOMEN: Soft, nontender. Normoactive bowel sounds all 4 quadrants. No guarding or rebound, rigidity, no mass : No CVA tenderness EXTREMITIES: Normal range of motion, no clubbing. Edema bilateral lower extremities. Neurovascularly intact NEUROLOGICAL: Cranial nerves II through XII grossly intact. Moving all extremities SKIN: Warm, dry, no petechiae, no rashes or lesions. Initial Vital Signs Initial Vital Signs: Vital Signs Temperature 98.9 F 05/17/24 09:47 Pulse Rate 86 05/17/24 09:47 Respiratory Rate 20 05/17/24 09:47 Blood Pressure 126/60 05/17/24 09:47 Pulse Oximetry 91 05/17/24 09:47 Oxygen Delivery Method Room Air 05/17/24 09:47 <Pan Rust MD - Last Filed: 05/18/24 07:15> Initial Vital Signs Initial Vital Signs: Vital Signs Temperature 98.9 F 05/17/24 09:47 Pulse Rate 86 05/17/24 09:47 Respiratory Rate 20 05/17/24 09:47 Blood Pressure 126/60 05/17/24 09:47 Pulse Oximetry 91 05/17/24 09:47 Oxygen Delivery Method Room Air 05/17/24 09:47 Course <Aisha Victoria DO - Last Filed: 05/18/24 18:10> Orders Ordered: Discontinued Medications Acetaminophen (Acetaminophen 325 Mg Tablet) 650 mg PO Q6HR PRN PRN Reason: Fever/Mild Pain (1-3) Albuterol (Albuterol 2.5 Mg/3 Ml Neb (Adult)) 2.5 mg INH [id number] PRN PRN Reason: Shortness Of Breath Amlodipine Besylate (Amlodipine 5 Mg Tablet) 10 mg PO DAILY [facility] Last Admin: 05/18/24 14:50 Dose: Not Given Documented By: JOHN Doxazosin Mesylate (Doxazosin 2 Mg Tablet) 2 mg PO BEDTIME [facility] Ceftriaxone Sodium 1,000 mg/ (Sodium Chloride) 100 mls @ 200 mls/hr IV NOW ONE Stop: 05/17/24 12:25 Last Infusion: 05/17/24 13:21 Dose: Infused Documented By: Admin: 05/17/24 12:48 Dose: 200 mls/hr Documented By: MARY Furosemide 80 mg/ Sodium (Chloride) 58 mls @ 116 mls/hr IV NOW ONE Stop: 05/17/24 16:19 Last Infusion: 05/17/24 17:21 Dose: Infused Documented By: Admin: 05/17/24 16:51 Dose: 116 mls/hr Documented By: MARY Calcium Gluconate 4.65 meq/ (Sodium Chloride) 60 mls @ 180 mls/hr IV NOW ONE Stop: 05/18/24 13:28 Last Infusion: 05/18/24 14:14 Dose: Infused Documented By: Admin: 05/18/24 13:31 Dose: 180 mls/hr Documented By: JOHN Ceftriaxone Sodium 1,000 mg/ (Sodium Chloride) 100 mls @ 200 mls/hr IV Q24H [facility] Last Infusion: 05/18/24 15:02 Dose: Infused Documented By: Admin: 05/18/24 14:18 Dose: 200 mls/hr Documented By: JOHN Ipratropium [place] (Ipratropium 0.5 Mg/2.5 Ml Neb) 0.5 mg INH RTQ4HR PRN PRN Reason: shortness Methylprednisolone (Methylprednisolone 125 Mg/2 Ml Vial) 125 mg IV NOW ONE Stop: 05/17/24 10:02 Last Admin: 05/17/24 10:28 Dose: 125 mg Documented By: MARY Olanzapine (Olanzapine 2.5 Mg Tablet) 5 mg PO BID [facility] Ondansetron HCl (Ondansetron 4 Mg/2 Ml Inj) 4 mg IV NOW ONE Stop: 05/18/24 13:09 Last Admin: 05/18/24 13:33 Dose: 4 mg Documented By: JOHN Pantoprazole Sodium (Pantoprazole 40 Mg Vial) 40 mg IV DAILY [facility] Last Admin: 05/18/24 14:17 Dose: 40 mg Documented By: JOHN Pravastatin Sodium (Pravastatin 20 Mg Tablet) 20 mg PO BEDTIME [facility] Vital Signs Vital signs: Vital Signs - 8 hr 05/18/24 10:30 05/18/24 11:00 05/18/24 11:30 Temperature Pulse Rate 81 80 83 Respiratory Rate 23 23 26 H Blood Pressure Pulse Oximetry 97 98 92 Oxygen Delivery Method Oximask Oxygen Flow Rate 3 05/18/24 12:00 05/18/24 12:00 05/18/24 12:30 Temperature Pulse Rate 80 79 Respiratory Rate 22 Blood Pressure 104/51 L Pulse Oximetry 97 93 Oxygen Delivery Method Oximask Oxygen Flow Rate 3 05/18/24 13:00 05/18/24 13:00 05/18/24 13:30 Temperature 98.2 F Pulse Rate 79 79 Respiratory Rate 22 21 Blood Pressure Pulse Oximetry 100 100 Oxygen Delivery Method Oximask Oximask Oxygen Flow Rate 3 3 05/18/24 13:41 05/18/24 13:41 05/18/24 14:00 Temperature Pulse Rate 81 Respiratory Rate 20 Blood Pressure 115/56 L 112/58 L Pulse Oximetry 93 Oxygen Delivery Method Oximask Oxygen Flow Rate 3 05/18/24 14:00 05/18/24 14:30 05/18/24 15:00 Temperature Pulse Rate 79 78 83 Respiratory Rate 19 21 17 Blood Pressure Pulse Oximetry 99 99 98 Oxygen Delivery Method Oximask Oxygen Flow Rate 3 05/18/24 15:30 05/18/24 16:00 05/18/24 16:30 Temperature Pulse Rate 80 75 80 Respiratory Rate 16 20 21 Blood Pressure Pulse Oximetry 98 95 97 Oxygen Delivery Method Oximask Oxygen Flow Rate 3 05/18/24 16:35 05/18/24 16:35 05/18/24 17:00 Temperature Pulse Rate 80 79 Respiratory Rate 16 17 Blood Pressure 112/54 L Pulse Oximetry 97 98 Oxygen Delivery Method Oxygen Flow Rate <Pan Rust MD - Last Filed: 05/18/24 07:15> Orders Ordered: Discontinued Medications Acetaminophen (Acetaminophen 325 Mg Tablet) 650 mg PO Q6HR PRN PRN Reason: Fever/Mild Pain (1-3) Albuterol (Albuterol 2.5 Mg/3 Ml Neb (Adult)) 2.5 mg INH [id number] PRN PRN Reason: Shortness Of Breath Amlodipine Besylate (Amlodipine 5 Mg Tablet) 10 mg PO DAILY [facility] Last Admin: 05/18/24 14:50 Dose: Not Given Documented By: JOHN Doxazosin Mesylate (Doxazosin 2 Mg Tablet) 2 mg PO BEDTIME [facility] Ceftriaxone Sodium 1,000 mg/ (Sodium Chloride) 100 mls @ 200 mls/hr IV NOW ONE Stop: 05/17/24 12:25 Last Infusion: 05/17/24 13:21 Dose: Infused Documented By: Admin: 05/17/24 12:48 Dose: 200 mls/hr Documented By: MARY Furosemide 80 mg/ Sodium (Chloride) 58 mls @ 116 mls/hr IV NOW ONE Stop: 05/17/24 16:19 Last Infusion: 05/17/24 17:21 Dose: Infused Documented By: Admin: 05/17/24 16:51 Dose: 116 mls/hr Documented By: MARY Calcium Gluconate 4.65 meq/ (Sodium Chloride) 60 mls @ 180 mls/hr IV NOW ONE Stop: 05/18/24 13:28 Last Infusion: 05/18/24 14:14 Dose: Infused Documented By: Admin: 05/18/24 13:31 Dose: 180 mls/hr Documented By: JOHN Ceftriaxone Sodium 1,000 mg/ (Sodium Chloride) 100 mls @ 200 mls/hr IV Q24H [facility] Last Infusion: 05/18/24 15:02 Dose: Infused Documented By: Admin: 05/18/24 14:18 Dose: 200 mls/hr Documented By: JOHN Ipratropium [place] (Ipratropium 0.5 Mg/2.5 Ml Neb) 0.5 mg INH RTQ4HR PRN PRN Reason: shortness Methylprednisolone (Methylprednisolone 125 Mg/2 Ml Vial) 125 mg IV NOW ONE Stop: 05/17/24 10:02 Last Admin: 05/17/24 10:28 Dose: 125 mg Documented By: MARY Olanzapine (Olanzapine 2.5 Mg Tablet) 5 mg PO BID [facility] Ondansetron HCl (Ondansetron 4 Mg/2 Ml Inj) 4 mg IV NOW ONE Stop: 05/18/24 13:09 Last Admin: 05/18/24 13:33 Dose: 4 mg Documented By: JOHN Pantoprazole Sodium (Pantoprazole 40 Mg Vial) 40 mg IV DAILY [facility] Last Admin: 05/18/24 14:17 Dose: 40 mg Documented By: JOHN Pravastatin Sodium (Pravastatin 20 Mg Tablet) 20 mg PO BEDTIME [facility] Vital Signs Vital signs: Vital Signs - 8 hr 05/18/24 10:30 05/18/24 11:00 05/18/24 11:30 Temperature Pulse Rate 81 80 83 Respiratory Rate 23 23 26 H Blood Pressure Pulse Oximetry 97 98 92 Oxygen Delivery Method Oximask Oxygen Flow Rate 3 05/18/24 12:00 05/18/24 12:00 05/18/24 12:30 Temperature Pulse Rate 80 79 Respiratory Rate 22 Blood Pressure 104/51 L Pulse Oximetry 97 93 Oxygen Delivery Method Oximask Oxygen Flow Rate 3 05/18/24 13:00 12/14/24 13:00 05/18/24 13:30 Temperature 98.2 F Pulse Rate 79 79 Respiratory Rate 22 21 Blood Pressure Pulse Oximetry 100 100 Oxygen Delivery Method Oximask Oximask Oxygen Flow Rate 3 3 05/18/24 13:41 05/18/24 13:41 05/18/24 14:00 Temperature Pulse Rate 81 Respiratory Rate 20 Blood Pressure 115/56 L 112/58 L Pulse Oximetry 93 Oxygen Delivery Method Oximask Oxygen Flow Rate 3 05/18/24 14:00 05/18/24 14:30 05/18/24 15:00 Temperature Pulse Rate 79 78 83 Respiratory Rate 19 21 17 Blood Pressure Pulse Oximetry 99 99 98 Oxygen Delivery Method Oximask Oxygen Flow Rate 3 05/18/24 15:30 05/18/24 16:00 05/18/24 16:30 Temperature Pulse Rate 80 75 80 Respiratory Rate 16 20 21 Blood Pressure Pulse Oximetry 98 95 97 Oxygen Delivery Method Oximask Oxygen Flow Rate 3 05/18/24 16:35 05/18/24 16:35 05/18/24 17:00 Temperature Pulse Rate 80 79 Respiratory Rate 16 17 Blood Pressure 112/54 L Pulse Oximetry 97 98 Oxygen Delivery Method Oxygen Flow Rate MDM - SOB/Dyspnea <Aisha Victoria, DO - Last Filed: 05/18/24 18:10> Lab Data 05/17/24 10:00 05/18/24 05:20 Labs: Lab Results 05/17/24 05/17/24 05/18/24 Range/Units 10:00 10:36 05:20 WBC 8.9 (4.5-11.0) X10^3/uL RBC 3.25 L (4.0-5.2) X10^6/uL Hgb 9.6 L (12.0-16.0) g/dL Hct 29.6 L (36-46) % MCV 91.2 (80-100) fL MCH 29.5 (26-34) PG MCHC 32.3 (30-36) % RDW 14.3 (11.6-14.8) % Plt Count 284 (150-400) X10^3/uL Neut % (Auto) 74.7 (50-75) % Lymph % (Auto) 16.8 L (25-40) % [place] % (Auto) 5.2 (3-14) % Eos % (Auto) 2.5 (2-4) % Baso % (Auto) 0.8 (0-2) % Neut # (Auto) 6600 (5337-6122) /uL Lymph # (Auto) 1500 (0636-5078) /uL [place] # (Auto) 500 (0-900) /uL Eos # (Auto) 200 (0-450) /uL Baso # (Auto) 100 (0-100) /uL Sodium 137 139 (137-145) mmol/L Potassium 4.7 5.4 H (3.4-5.1) mmol/L Chloride 105 106 (98-107) mmol/L Carbon Dioxide 23 21 L (22-32) mmol/L BUN 69 H 79 H (7-17) mg/dL Creatinine 5.14 H 5.92 H (0.52-1.04) mg/dL Estimated GFR 8 L 7 L (>60) mL/min BUN/Creatinine Ratio 13.4 13.3 (6-22) Glucose 99 122 H (80-110) mg/dL Calcium 7.3 L 7.1 L (8.4-10.2) mg/dL Total Bilirubin 0.5 (0.2-1.3) mg/dL AST 23 (14-36) IU/L ALT 12 (<35) IU/L Alkaline Phosphatase 85 (38-126) U/L Total Creatine Kinase 129 (30-135) U/L Troponin I 0.016 (0.01-0.034) ng/mL NT-Pro-B Natriuret Pep 2890 H (<450) pg/mL Total Protein 6.2 L (6.3-8.2) g/dL Albumin 3.4 L (3.5-5.0) g/dL Globulin 2.8 (1.7-4.1) g/dL Albumin/Globulin Ratio 1.2 (1.0-2.8) Lipase 44 (23-300) U/L Urine Color Yellow Urine Appearance Clear Urine pH 5.5 (4.5-8.0) Ur Specific [place] 1.020 (1.000-1.035) Urine Protein 2+ H (Negative) Urine Glucose (UA) Negative (Negative) g/dL Urine Ketones Negative (NEGATIVE) Urine Occult Blood Trace-intact (Negative) Urine Nitrate Negative (Negative) Urine Bilirubin Negative (NEGATIVE) Urine Urobilinogen 0.2 (0.2) E.U./dL Ur Leukocyte Esterase 1+ H (NEGATIVE) Urine RBC 1-5/hpf (0-5/HPF) Urine WBC 10-30/hpf H (0-5/HPF) Ur Squamous Epith Cells 5-10 /hpf H (0-5/HPF) Urine Bacteria Few (2-10) H (None) Ur Culture Indicated? Specimen cultured Vol Urine Centrifuged 10ml (spun) SARS-CoV-2 (PCR) Negative (Negative) Influenza A (RT-PCR) Flu a negative (NEGATIVE) Influenza B (RT-PCR) Flu b negative (NEGATIVE) RSV (PCR) Negative (Negative) Point of Care Testing Stool Occult Blood Positive Imaging Data Chest x-ray: Radiologist's Impression: Rosanna Dangelo??79??F??1945 ? Allergy/Adv: divalproex sodium Close Chest X-Ray (Signed) Foster Lam - 05/17/24 Peripheral Vascular Ultrasound (Signed) Foster Lam - 05/06/24 Chest X-Ray (Signed) Foster Lam - 05/06/24 Knee X-Ray (Signed) Foster Lam - 04/25/24 Echocardiogram Ultrasound (Signed) Robinson Atkinson - 04/16/24 Abdomen/Pelvis CT (Signed) Byron Aleman - 04/16/24 Chest X-Ray (Signed) Usha Buitrago - 04/16/[address] (Signed) Usha Buitrago - 04/16/[address] (Signed) Usha Buitrago - 04/16/24 Hip X-Ray (Signed) Pato De La Cruz - 04/07/24 Chest X-Ray (Signed) Pato De La Cruz - 04/07/24 Renal Ultrasound (Signed) Desmond Ybarra - 03/19/[address] [address] XRay Report Signed Patient: Rosanna Dangelo MR#: [id number] : 1945 Acct:[id number] Age/Sex: 79 / F Date of Service: 05/17/24 Loc: ED Accession Number: [id number] Procedure: XR chest 1V Ordering Provider: Aisha Victoria D.O. PROCEDURE: XR CHEST 1V INDICATIONS: sob, lasix stopped recently TECHNIQUE: One view of the chest was acquired. COMPARISON: Merged With [facility], CR, XR CHEST 1V, 05/06/2024, 10:28. Merged With [facility], CR, XR CHEST 1V, 04/16/2024, 11:46. FINDINGS: Surgical changes and devices: None. Lungs and pleura: Lungs are clear. No pleural effusions or pneumothorax. Mediastinum: Mediastinal contours appear normal. Heart size is enlarged. Bones and chest wall: No suspicious bony lesions. Overlying soft tissues appear unremarkable. IMPRESSION: Cardiomegaly without pulmonary edema. Dictated by: Foster Lam M.D. on 05/17/2024 at 10:18 Approved by: Foster Lam M.D. on 05/17/2024 at 10:18 ECG Data Attestation: I personally reviewed and interpreted this ECG as follows: Prior ECG tracings: available for review Interpretation: Sinus rhythm rate 85 TX 166 QRS 64 QTC of 449, no acute ST elevation or depression appreciated patient does not have what appears to be a little bit of motion artifact. Patient has prior from 05/06/2024 has a little bit of nonspecific change. MDM Narrative Medical decision making narrative: 79-year-old female CKD, does not appear to have some swelling in lower extremities with complaint of shortness of breath. Patient is 90-91% on room air, mildly tachypneic with mild distress. Labs white count 8.9 hemoglobin 9.6 patient has been consistently 10 range, platelets of 284. Chemistries show normal electrolytes BUN 69 creatinine of 5.14 calcium of 7.3 LFTs are negative troponins 0.016 with a BNP of 28 90 lipase of 44 COVID/influenza/RSV is negative. EKG shows sinus rhythm, rate 85 TX 166 QRS is 64 QTC of 449, little bit of motion artifact but no obvious ST elevation or depression noted. Nonspecific change. Chest x-ray, cardiomegaly without pulmonary edema bladder scan shows 315mL in her bladder. post void bladder scan is 173 and 213mL UA 1130: Called phone number, busy signal with no voicemail 1132: Called sister Dayan, answered phone. She is unsure who DPOA is but does not assist with decision. is currently at another facility hospitalized. They have a financial power of ic engineer Mark Silverio unsure if he has any involvement in medical decisions. 1137: Call [facility] to see if they have a rn staffing on file. Patient herself does not recall. 1152: Spoke with Mark Silveroi, DPOA had to cut phone call short before we could discuss goals of care as had call from Zhanna Cain regarding patients . 1158: Mark Silverio, states financial DPOA does have durable [id number] paperwork but states it has not been signed. But the individual that would be power of ic engineer states they are unaware that they would be so. He was notified by sister to call myself. Patient see Dr. Alford, nephrology with [facility]. 1324: Spoke with Dr. Alford, we will recommend trying to see Urology locally discussed it has getting a little bit hypoxic he had seen patient last in 2021 had a creatinine 2.99 in February suspect her increased Lasix maybe part of her fluid overload he had been recommending bladder scans at home to monitor attention we reviewed her findings and workup today and he states does not appear to be obstructive states GFR was 10-15 with stage 5 at that time. He will send a message to Dr. Hyde or Barrett at [facility] to see if they can follow up with the patient short term we did discuss she has been hypoxic intermittently. Calls out to multiple facilities, no beds at [facility] in [place], no beds at [facility], calls to [facility] no call back, Zhanna cain spoke with coordinator. Spoke with nephrology at [facility]. She asked that we give 80 mg of Lasix but that we can transfer after speaking with the hospitalist. Discussed there maybe some issues with decision makers reviewed that I spoke with individual who maybe her DPOA what was unclear if there was actual paperwork. She was pleasantly confused but likely needs some assistance with decisions and has been is currently hospitalized and reportedly demented as well. Waiting call back from hospitalist. Spoke with Dr. Wadsworth, hospitalist at [facility] it accepts for transfer bed maybe tonight versus quality assurance analyst. We will look for telemetry bed. Awaiting callback with bed assignment. Patient signed out to Dr. Rust while awaiting placement. 05/17/2024, Barrera Wiley. Sign-out from Dr. Victoria. 79-year-old female has been accepted for transfer to [facility], has chronic kidney disease, creatinine 5 elevated, new hypoxia, chest x-ray negative, legs swollen, increased BNP, has intermittently had Lasix added and decreased, most recently Lasix was stopped 05/13/2024. Worsening renal function, they would like to have Nephrology consultation, not available here. Case has been presented to [facility] hospitalist, accepted for transfer, awaiting bed assignment. Assumed interim care. 1915, DOPE EDGER reports patient will not be able to be transferred until tomorrow morning to [facility]. Will order repeat labs for the morning. 05/18/2024, 0700, still awaiting transfer. Interval creatinine 5.9 worsening, potassium mild elevation 5.4, oral Lokelma ordered. Signed back out to Dr Victoria. 05/18/2024: Patient signed out to myself. Seen by myself. Patient labs reviewed potassium slightly elevated. Lokelma ordered. Patient on renal diet. We will hold off on any fluids. Did have a bowel movement today that was quite large but no blood. Reviewed patient's home medications and ordered these. DVT prophylaxis. PPI. Calcium had trended down words to 7.1 so calcium was also ordered. Patient's urine culture shows no growth to this point what we will continue Rocephin for now. Potential for bed later today. Patient had increased O2 requirements overnight but not throughout the day while she has been awake, she has been consistently on 3L nasal cannula [facility] was contacted and updated about patients worsening renal status and increase in potassium. [facility] called back with bed assignment. ALS transport for cardiac monitoring with mild potassium elevation. <Pan Rust MD - Last Filed: 05/18/24 07:15> Lab Data Labs: Lab Results 05/17/24 05/17/24 05/18/24 Range/Units 10:00 10:36 05:20 WBC 8.9 (4.5-11.0) X10^3/uL RBC 3.25 L (4.0-5.2) X10^6/uL Hgb 9.6 L (12.0-16.0) g/dL Hct 29.6 L (36-46) % MCV 91.2 (80-100) fL MCH 29.5 (26-34) PG MCHC 32.3 (30-36) % RDW 14.3 (11.6-14.8) % Plt Count 284 (150-400) X10^3/uL Neut % (Auto) 74.7 (50-75) % Lymph % (Auto) 16.8 L (25-40) % [place] % (Auto) 5.2 (3-14) % Eos % (Auto) 2.5 (2-4) % Baso % (Auto) 0.8 (0-2) % Neut # (Auto) 6600 (2272-6352) /uL Lymph # (Auto) 1500 (8317-2543) /uL [place] # (Auto) 500 (0-900) /uL Eos # (Auto) 200 (0-450) /uL Baso # (Auto) 100 (0-100) /uL Sodium 137 139 (137-145) mmol/L Potassium 4.7 5.4 H (3.4-5.1) mmol/L Chloride 105 106 (98-107) mmol/L Carbon Dioxide 23 21 L (22-32) mmol/L BUN 69 H 79 H (7-17) mg/dL Creatinine 5.14 H 5.92 H (0.52-1.04) mg/dL Estimated GFR 8 L 7 L (>60) mL/min BUN/Creatinine Ratio 13.4 13.3 (6-22) Glucose 99 122 H (80-110) mg/dL Calcium 7.3 L 7.1 L (8.4-10.2) mg/dL Total Bilirubin 0.5 (0.2-1.3) mg/dL AST 23 (14-36) IU/L ALT 12 (<35) IU/L Alkaline Phosphatase 85 (38-126) U/L Total Creatine Kinase 129 (30-135) U/L Troponin I 0.016 (0.01-0.034) ng/mL NT-Pro-B Natriuret Pep 2890 H (<450) pg/mL Total Protein 6.2 L (6.3-8.2) g/dL Albumin 3.4 L (3.5-5.0) g/dL Globulin 2.8 (1.7-4.1) g/dL Albumin/Globulin Ratio 1.2 (1.0-2.8) Lipase 44 (23-300) U/L Urine Color Yellow Urine Appearance Clear Urine pH 5.5 (4.5-8.0) Ur Specific [place] 1.020 (1.000-1.035) Urine Protein 2+ H (Negative) Urine Glucose (UA) Negative (Negative) g/dL Urine Ketones Negative (NEGATIVE) Urine Occult Blood Trace-intact (Negative) Urine Nitrate Negative (Negative) Urine Bilirubin Negative (NEGATIVE) Urine Urobilinogen 0.2 (0.2) E.U./dL Ur Leukocyte Esterase 1+ H (NEGATIVE) Urine RBC 1-5/hpf (0-5/HPF) Urine WBC 10-30/hpf H (0-5/HPF) Ur Squamous Epith Cells 5-10 /hpf H (0-5/HPF) Urine Bacteria Few (2-10) H (None) Ur Culture Indicated? Specimen cultured Vol Urine Centrifuged 10ml (spun) SARS-CoV-2 (PCR) Negative (Negative) Influenza A (RT-PCR) Flu a negative (NEGATIVE) Influenza B (RT-PCR) Flu b negative (NEGATIVE) RSV (PCR) Negative (Negative) Point of Care Testing Stool Occult Blood Positive MDM Narrative Medical decision making narrative: 79-year-old female CKD, does not appear to have some swelling in lower extremities with complaint of shortness of breath. Patient is 90-91% on room air, mildly tachypneic with mild distress. Labs white count 8.9 hemoglobin 9.6 patient has been consistently 10 range, platelets of 284. Chemistries show normal electrolytes BUN 69 creatinine of 5.14 calcium of 7.3 LFTs are negative troponins 0.016 with a BNP of 28 90 lipase of 44 COVID/influenza/RSV is negative. EKG shows sinus rhythm, rate 85 TX 166 QRS is 64 QTC of 449, little bit of motion artifact but no obvious ST elevation or depression noted. Nonspecific change. Chest x-ray, cardiomegaly without pulmonary edema bladder scan shows 315mL in her bladder. post void bladder scan is 173 and 213mL UA 1130: Called phone number, busy signal with no voicemail 1132: Called sister Dayan, answered phone. She is unsure who DPOA is but does not assist with decision. is currently at another facility hospitalized. They have a financial power of ic engineer Mark Silverio unsure if he has any involvement in medical decisions. 1137: Call [facility] to see if they have a rn staffing on file. Patient herself does not recall. 1152: Spoke with Mark Silverio, DPOA had to cut phone call short before we could discuss goals of care as had call from Zhanna Cain regarding patients . 1158: Mark Silverio, states financial DPOA does have durable [id number] paperwork but states it has not been signed. But the individual that would be power of ic engineer states they are unaware that they would be so. He was notified by sister to call myself. Patient see Dr. Alford, nephrology with [facility]. 1324: Spoke with Dr. Alford, we will recommend trying to see Urology locally discussed it has getting a little bit hypoxic he had seen patient last in 2021 had a creatinine 2.99 in February suspect her increased Lasix maybe part of her fluid overload he had been recommending bladder scans at home to monitor attention we reviewed her findings and workup today and he states does not appear to be obstructive states GFR was 10-15 with stage 5 at that time. He will send a message to Dr. Hyde or Barrett at [facility] to see if they can follow up with the patient short term we did discuss she has been hypoxic intermittently. Calls out to multiple facilities, no beds at [facility] in [place], no beds at [facility], calls to [facility] no call back, Zhanna cain spoke with coordinator. Spoke with nephrology at [facility]. She asked that we give 80 mg of Lasix but that we can transfer after speaking with the hospitalist. Discussed there maybe some issues with decision makers reviewed that I spoke with individual who maybe her DPOA what was unclear if there was actual paperwork. She was pleasantly confused but likely needs some assistance with decisions and has been is currently hospitalized and reportedly demented as well. Waiting call back from hospitalist. Spoke with Dr. Wadsworth, hospitalist at [facility] it accepts for transfer bed maybe tonight versus quality assurance analyst. We will look for telemetry bed. Awaiting callback with bed assignment. Patient signed out to Dr. Rust while awaiting placement. 05/17/2024, Barrera Wiley. Sign-out from Dr. Victoria. 79-year-old female has been accepted for transfer to [facility], has chronic kidney disease, creatinine 5 elevated, new hypoxia, chest x-ray negative, legs swollen, increased BNP, has intermittently had Lasix added and decreased, most recently Lasix was stopped 05/13/2024. Worsening renal function, they would like to have Nephrology consultation, not available here. Case has been presented to [facility] hospitalist, accepted for transfer, awaiting bed assignment. Assumed interim care. 191, [facility] [place] patient will not be able to be transferred until tomorrow morning to [facility]. Will order repeat labs for the morning. 05/18/2024, 0700, still awaiting transfer. Interval creatinine 5.9 worsening, potassium mild elevation 5.4, oral Lokelma ordered. Signed back out to Dr Victoria Discharge Plan Departure Patient Disposition: [facility] Clinical Impression: CKD (chronic kidney disease), UTI (urinary tract infection) Prescriptions: No Action lorazepam [Ativan] 0.5 MG tablet 0.5 mg PO BID Qty: 0 fluoxetine 20 MG capsule 20 mg OR BID Qty: 0 lisinopril 5 MG tablet 5 mg PO HS Qty: 0 lamotrigine [Lamictal] 200 MG tablet 200 mg PO QDAY Qty: 0 pravastatin [Pravachol] 20 MG tablet 20 mg PO HS Qty: 0 beclomethasone dipropionate [Qvar] 40 MCG/PUFF aerosol 2 puff INH BID Qty: 0 albuterol sulfate 2.5 MG/0.5 ML solution for nebulization 1 dose INH QID PRNQty: 0 ipratropium bromide 0.2 MG/1 ML solution 1 dose INH QID PRNQty: 0 diclofenac sodium [Voltaren Arthritis Pain] 1 % gel 2 g topical QID Qty: 100 0RF Rx Instructions: apply to single elbow, wrist or hand; for hand includes palm/fingers/back of hand furosemide [Lasix] 20 mg tablet 20 mg PO DAILY Qty: 7 0RF Referrals: Blaise Kelsey MD [Primary Care Provider] -
--- NOTE | 2024-05-17 09:55 | EKG_ITS ---
[address] [address] Test Date: 2024-05-17 Pat Name: Rosanna Dangelo Department: Room: Gender: Female Creative Recruiter: ANSLEY : 1945 Requested By: Order Number: [id number] Reading MD: Mark Andino MD Measurements Intervals [place] Rate: 85 P: 37 SD: 166 QRS: 95 QRSD: 64 T: 75 QT: 378 QTc: 449 Interpretive Statements Sinus rhythm with fusion complexes Possible Left atrial enlargement Rightward axis Low voltage QRS NO SIGNIFICANT CHANGE FROM PRIOR TRACING Electronically Signed On 05-18-2024 16:16:16 PST by Mark Andino MD
--- NOTE | 2024-05-17 10:01 | DI.RAD.S_ITS ---
PROCEDURE: XR CHEST 1V INDICATIONS: sob, lasix stopped recently TECHNIQUE: One view of the chest was acquired. COMPARISON: [facility], CR, XR CHEST 1V, 05/06/2024, 10:28. [facility], CR, XR CHEST 1V, 04/16/2024, 11:46. FINDINGS: Surgical changes and devices: None. Lungs and pleura: Lungs are clear. No pleural effusions or pneumothorax. Mediastinum: Mediastinal contours appear normal. Heart size is enlarged. Bones and chest wall: No suspicious bony lesions. Overlying soft tissues appear unremarkable. IMPRESSION: Cardiomegaly without pulmonary edema. Dictated by: Foster Lam M.D. on 05/17/2024 at 10:18 Approved by: Foster Lam M.D. on 05/17/2024 at 10:18
[2024-05-17 10:13] LABS: Add Manual Diff / Slide Review NO; Basophils Absolute Auto 100 /uL (0-100); Basophils Percent Auto 0.8 % (0-2); Eosinophils Absolute Auto 200 /uL (0-450); Eosinophils Percent Auto 2.5 % (2-4); Hematocrit 29.6 % (36-46); Hemoglobin 9.6 g/dL (12.0-16.0); Lymphocytes Absolute Auto 1500 /uL (1100-4500); Lymphocytes Percent Auto 16.8 % (25-40); Mean Corpuscular HGB Conc 32.3 % (30-36); Mean Corpuscular Hemoglobin 29.5 PG (26-34); Mean Corpuscular Volume 91.2 fL (80-100); Monocytes Absolute Auto 500 /uL (0-900); Monocytes Percent Auto 5.2 % (3-14); Neutrophils Absolute Auto 6600 /uL (1500-7000); Neutrophils Percent Auto 74.7 % (50-75); Platelet Count 284 X10^3/uL (150-400); Red Blood Cell Count 3.25 X10^6/uL (4.0-5.2); Red Cell Distribution Width 14.3 % (11.6-14.8); White Blood Cell Count 8.9 X10^3/uL (4.5-11.0)
--- NOTE | 2024-05-17 10:13 | PC.NURSE ---
Addendum entered by Alejandra Sierra R.N. 05/17/24 10:14: the patient and therefore was removed due to discomfort and possibility that it is compromised. Original Note: IV started by EMS was notedto be swollen with Blood leaking around catheter from capillary spaces. It is causeing pain to
[2024-05-17 10:27] LABS: Alanine Aminotransferase 12 IU/L (<35); Albumin 3.4 g/dL (3.5-5.0); Albumin Globulin Ratio 1.2 (1.0-2.8); Alkaline Phosphatase 85 U/L (38-126); Aspartate Aminotransferase 23 IU/L (14-36); BUN Creatinine Ratio 13.4 (6-22); Bilirubin Total 0.5 mg/dL (0.2-1.3); Blood Urea Nitrogen 69 mg/dL (7-17); Calcium 7.3 mg/dL (8.4-10.2); Carbon Dioxide 23 mmol/L (22-32); Chloride 105 mmol/L (98-107); Creatine Kinase 129 U/L (30-135); Estimated Glomerular Filt Rate 8 mL/min (>60); Globulin 2.8 g/dL (1.7-4.1); Glucose 99 mg/dL (80-110); HEMOLYSIS 27 (0-50); Lipase 44 U/L (23-300); Potassium 4.7 mmol/L (3.4-5.1); Sodium 137 mmol/L (137-145); Total Protein 6.2 g/dL (6.3-8.2)
[2024-05-17] MEDS: methylPREDNISolone 125 MG/2 ML VIAL IV (10:28)
[2024-05-17 10:39] LABS: NT-proBNP (BNP-Adult 18+) 2890 pg/mL (<450); Troponin I 0.016 ng/mL (0.01-0.034)
[2024-05-17 11:07] LABS: COVID-19 CEPHEID 4-PLEX PCR Negative (Negative); Influenza A - CEPHEID Flu A NEGATIVE (NEGATIVE); Influenza B - CEPHEID Flu B NEGATIVE (NEGATIVE); Respiratory Syncytial Virus Negative (Negative)
[2024-05-17 11:53] LABS: Appearance Urine UA CLEAR; Bilirubin Urine UA NEGATIVE (NEGATIVE); Color Urine UA YELLOW; Glucose Urine UA NEGATIVE (Negative); Ketones Urine UA NEGATIVE (NEGATIVE); Leukocyte Esterase Urine UA 1+ (NEGATIVE); Nitrite Urine UA NEGATIVE (Negative); Occult Blood Urine UA TRACE-INTACT (Negative); Protein Urine UA 2+ (Negative); Urobilinogen Urine UA 0.2 E.U./dL (0.2); pH Urine UA 5.5 (4.5-8.0)
[2024-05-17 11:59] LABS: Bacteria Urine Few (2-10); Culture Indicated Urine Specimen Cultured; RBC Urine 1-5/HPF (0-5/HPF); Squamous Epithelial Cell Urine 5-10 /HPF (0-5/HPF); Urine Volume 10mL (spun); WBC Urine 10-30/HPF (0-5/HPF)
--- NOTE | 2024-05-17 12:05 | PC.NURSE ---
1115 Patient unable to urinate on bedpan. Patient up to commode with 2 person assist. Able to urinate 100ml at that time.
--- NOTE | 2024-05-17 12:31 | PC.NURSE ---
Patient's O2 Saturation is consistently dropping to 85-86% whenever she sleeps. When patient is awakened her O2 Saturation rises to 92%. Dr. Victoria informed and aware, patient placed on 1L O2 Nasal Cannula per dr. boyce.
[2024-05-17] MEDS: cefTRIAXone 1,000 MG in SODIUM CHLORIDE 0.9% 100 ML 200 MG IV (12:48)
[2024-05-17] MEDS: FUROSEMIDE 80 MG in SODIUM CHLORIDE 0.9% 50 ML 116 MG IV (16:51)
--- NOTE | 2024-05-17 17:05 | PC.NURSE ---
At this time I spoke with PAULINO Silverio [phone] and informed him of update of status of patient.
--- NOTE | 2024-05-17 18:01 | PC.NURSE ---
At this time I called Mark BOB and informed him of the patient's confirmed transfer to [facility]. He reports he will inform the patient's of this.
--- NOTE | 2024-05-17 22:34 | PC.NURSE ---
Pt drowsy. Opens eyes to voice and obeys commands. Denies complaint. Pt transferred to hospital bed. Purple bruise noted to left buttock and scattered bruises to posterior lower extremities. Pt turned to right side and positioned for comfort.
--- NOTE | 2024-05-17 22:57 | PC.NURSE ---
INSTALLATION DRAFTER note: [id number] Spoke to the senior warehouse clerk (Sebastian) about possible bed placement at [facility]. Currently they have no bed and are planning to take the patient tomorrow after discharges.
[2024-05-18] VITALS (36 sets, daily range): BP systolic 104–138; BP diastolic 51–62; PULSE 73–90; RESP 16–26; TEMP 36.8; O2SAT 92–100
--- NOTE | 2024-05-18 03:36 | PC.NURSE ---
Report given to September, RN
[2024-05-18 06:07] LABS: BUN Creatinine Ratio 13.3 (6-22); Blood Urea Nitrogen 79 mg/dL (7-17); Calcium 7.1 mg/dL (8.4-10.2); Carbon Dioxide 21 mmol/L (22-32); Chloride 106 mmol/L (98-107); Estimated Glomerular Filt Rate 7 mL/min (>60); Glucose 122 mg/dL (80-110); HEMOLYSIS < 15 (0-50); Sodium 139 mmol/L (137-145)
[2024-05-18 06:09] LABS: Potassium 5.4 mmol/L (3.4-5.1)
[2024-05-18] MEDS: SODIUM ZIRCONIUM CYCLOSILICATE 10 GM POWD.PACK PO (08:04)
--- NOTE | 2024-05-18 11:57 | PC.NURSE ---
This RN assumed care of the patient from Metter RN, went into the room at 1100 to help turn the patient. At this time patient had an extra large watery BM, there were several large blood clots in the BM. Did bedside stool ocult and it was positive, provider is aware. The patient had some bruising on their left buttocks and their right hip, no falls while here in the emergency department. This RN offered patient some water and renal diet lunch tray has been ordered.
[2024-05-18] MEDS: CALCIUM GLUCONATE 4.65 MEQ in SODIUM CHLORIDE 0.9% 50 ML 180 MEQ IV (13:31)
[2024-05-18] MEDS: ONDANSETRON 4 MG/2 ML INJ IV (13:33)
[2024-05-18] MEDS: PANTOPRAZOLE 40 MG VIAL IV (14:17)
[2024-05-18] MEDS: cefTRIAXone 1,000 MG in SODIUM CHLORIDE 0.9% 100 ML 200 MG IV (14:18)
== END 2024-05-18 17:25 | disposition short-term general hospital (02) ==
PROVIDERS: Emergency Medicine; Emergency Provider Emergency Medicine; Family Provider Family Medicine; PCP Student in an Organized Health Care Education/Training Program
DX: I12.9 Hypertensive chronic kidney disease with stage 1 through stage 4 chronic kidney disease, or unspecified chronic kidney disease (principal); N18.4 Chronic kidney disease, stage 4 (severe); N39.0 Urinary tract infection, site not specified; R09.02 Hypoxemia; Z87.891 Personal history of nicotine dependence
CPT/HCPCS: 0241U; 36415; 51798; 71045; 80048; 80053; 81001; 82272; 82550; 83690; 83880; 84484; 85025; 87086; 93005; 96365; 96367; 96368; 96375; 99285; J0612; J0696; J1940; J2405; J2470; J2919